=== PATIENT | male | born 1985 | race Caucasian/White ===

== ENCOUNTER 2019-06-15 10:43 | Emergency (ER) | payer MEDICARE, SELFPAY ==
[2019-06-15 10:56] VITALS: BP 167/99; PULSE 116; RESP 18; TEMP 36.8; O2SAT 98; BMI 29.0
--- NOTE | 2019-06-15 11:06 | ED_ITS ---
HPI - Extremity Problem General: Chief complaint: Extremity Problem,Nontraumatic Stated complaint: left hand finger pain Time Seen by Provider: 06/15/19 11:05 Source: patient Mode of arrival: ambulatory Limitations: no limitations History of Present Illness: HPI Narrative: pain/throbbing and swelling to L index finger x 2 days; no known injury/trauma/fb Complaint: extremity pain Onset (ago): day(s) (yesterday ) Pain Consistency: constant Location: left (index finger ) Quality: other (throbbing) Relieving factors: elevation Associated symptoms: Reports no associated symptoms; Deny fever(s) Review of Systems Const: Denies: fever or chills Musc: Reports: other (swelling to distal L index finger ) Neuro: Denies: numbness in extremities, weakness in extremities or changes in sensation PFSH ED PFSH: Statuses (acute, chronic, etc) shown below reflect problem list status as previously entered and may not be historically accurate Social History Smoking and tobacco status: current every day smoker Physical Exam Const: COMMON NORMALS: no apparent distress, oriented x3 and healthy appearing Neuro: COMMON NORMALS: oriented x3 Skin: NARRATIVE SKIN EXAM: probably developing felon to L index finger; no erythema/warmth Procedures Abscess I/D Site: hand (L index finger ) Side (if applicable): left Local Anesthetic: lidocaine 1% (digital block ) Amount of anesthesia used (mL): 2.0 Technique: incised with #11 blade Irrigation: No Packing used?: plain Course Vital Signs: Vital signs: Vital Signs Temperature 98.2 F 06/15/19 10:56 Pulse Rate 74 06/15/19 13:17 Respiratory Rate 16 06/15/19 13:17 Blood Pressure 157/92 06/15/19 13:17 Pulse Oximetry 98 06/15/19 13:17 MDM - Extremity (Nontraumatic) MDM Narrative: Medical decision making narrative: will have pt do warm water soaks and leave packing in x 3 days and he can remove; will have him return for worsening symptoms despite abx Imaging Data^: L finger: Radiologist's impression: [address] [address] XRay Report Signed Patient: Ramón Otero MR#: [id number] : 1985 Acct:[id number] Age/Sex: 34 / M ADM Date: 06/15/19 Loc: ER Attending Dr: Ordering Physician: Sara Mak Date of Service: 06/15/19 Procedure(s): XR finger LT min 2V 73305 Accession Number(s): [id number] cc: Sara Mak PROCEDURE INFORMATION: Exam: XR Left Finger(s) Exam date and time: 06/15/2019 11:12 AM Age: 34 years old Clinical indication: Condition or disease; Other: Index; Infection/poss fb; Additional info: Index; Infection/poss fb swelling distal 2nd finger TECHNIQUE: Imaging protocol: XR Left fingers. Views: Minimum 2 views. COMPARISON: No relevant prior studies available. FINDINGS: Bones/joints: Normal finger. No fracture or foreign body. Soft tissues: Normal. XR/XR finger LT min 2V [id number] IMPRESSION: No fracture or foreign body. Dictated By: Tommy Lynn MD 06/15/19 1224 Signed By: Tommy Lynn MD 06/15/19 1225 Discharge Plan Discharge Patient Disposition: Home, Self-Care Clinical Impression: Felon of finger of left hand Condition: Stable Prescriptions: New sulfamethoxazole-trimethoprim 800-160 mg tablet 1 tab PO DAILY 7 Days RF: 0 Bactrim DS 800-160 mg tablet 1 tab PO BID 7 Days Qty: 14 RF: 0 Discharge Orders: Discharge Order (Routine); Ordered 06/15/19 Ordered By: Sara Mak Referrals: Selin Dahl, CASH VAN SALESPERSON [Family Provider] - Discharge Diet: Usual diet Discharge Activity: Resume usual activity Activity Restrictions/Additional Instructions: Leave packing in x 3 days. Remove on your own. Soak finger in warm soapy water 3x daily x 15 mins. Stand Alone Forms: Work/Release Restrictions Discharge Date/Time: 06/15/19 13:27 Coding Level of Care Code ED Wood Sash And Frame Carpenter for Maya Aguirre
--- NOTE | 2019-06-15 11:11 | XRR_ITS ---
PROCEDURE INFORMATION: Exam: XR Left Finger(s) Exam date and time: 06/15/2019 11:12 AM Age: 34 years old Clinical indication: Condition or disease; Other: Index; Infection/poss fb; Additional info: Index; Infection/poss fb swelling distal 2nd finger TECHNIQUE: Imaging protocol: XR Left fingers. Views: Minimum 2 views. COMPARISON: No relevant prior studies available. FINDINGS: Bones/joints: Normal finger. No fracture or foreign body. Soft tissues: Normal. XR/XR finger LT min 2V [id number] IMPRESSION: No fracture or foreign body.
--- NOTE | 2019-06-15 11:13 | PC.NURSE ---
left index finger appears to have wound on tip
[2019-06-15] MEDS: lidocaine 2% INJ 20 mL XX (12:15)
[2019-06-15 13:17] VITALS: BP 157/92; PULSE 74; RESP 16; O2SAT 98
== END 2019-06-15 13:27 | disposition home or self-care (01) ==
PROVIDERS: Emergency Provider Physician Assistant; Family Provider Nurse Practitioner Family
DX: L03.012 Cellulitis of left finger (principal); L02.512 Cutaneous abscess of left hand; F17.210 Nicotine dependence, cigarettes, uncomplicated
CPT/HCPCS: 26010; 73140; 99281; 99283; A6446; J2001

== ENCOUNTER 2019-07-11 15:06 | Emergency (ER) | payer MEDICARE, SELFPAY ==
[2019-07-11 15:08] VITALS: BP 167/110; PULSE 103; RESP 17; TEMP 36.7; O2SAT 98; BMI 29.0
[2019-07-11 15:09] VITALS: BP 167/110; PULSE 99; RESP 18; TEMP 36.7; O2SAT 98
[2019-07-11 15:21] VITALS: PULSE 99
[2019-07-11] MEDS: TRAMadol 50 mg Tablet PO (15:30)
[2019-07-11 15:47] VITALS: BP 167/110; PULSE 105; RESP 18; TEMP 36.7; O2SAT 99
--- NOTE | 2019-07-11 15:52 | ED_ITS ---
HPI - Extremity Problem General: Chief complaint: Extremity Injury, Upper Stated complaint: swollen thumb Time Seen by Provider: 07/11/19 15:14 Source: patient Mode of arrival: ambulatory Limitations: no limitations History of Present Illness: HPI Narrative: Patient is a 34-year-old male who presents to ED today with complaints of right thumb pain over the past few days. 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 He was here earlier last month for similar symptoms on an index finger on his left hand-this was seen by myself and cleared up nicely. MD Complaint: extremity pain Onset (ago): day(s) Pain Consistency: constant Location: right Radiation: none Relieving factors: nothing Exacerbating factors: nothing Review of Systems Musc: Reports: other (R thumb pain) PFSH ED PFSH: Statuses (acute, chronic, etc) shown below reflect problem list status as previously entered and may not be historically accurate Social History Smoking and tobacco status: current every day smoker Physical Exam Const: COMMON NORMALS: no apparent distress, oriented x3, no limitations, alert and well nourished Extremity: OTHER: Patient has redness to his right distal thumb that is TTP. No obvious felon/abscess formation at this time. No subungual hematoma. No fb visualized. There is no uniform swelling to digit; maintains full ROM Neuro: COMMON NORMALS: oriented x3 SENSORIUM/ORIENTATION: Yes alert Course Vital Signs: Vital signs: Vital Signs Temperature 98.1 F 07/11/19 15:47 Pulse Rate 105 H 07/11/19 15:47 Respiratory Rate 18 07/11/19 15:47 Blood Pressure 167/110 07/11/19 15:47 Pulse Oximetry 99 07/11/19 15:47 Discharge Plan Discharge Patient Disposition: Home, Self-Care Clinical Impression: Finger infection Condition: Stable Prescriptions: New Bactrim DS 800-160 mg tablet 1 tab PO BID 7 Days Qty: 14 RF: 0 Discharge Orders: Discharge Order (Routine); Ordered 07/11/19 Ordered By: Sara Mak Referrals: Selin Dahl, SHOT POLISHER AND INSPECTOR [Family Provider] - Activity Restrictions/Additional Instructions: Warm water soaks x 15-20 mins at least 5-6x daily. Begin antibiotics immediately. Return to ED for no improvement in 48 hours despite antibiotics. As discussed this may have to be drained later. Discharge Date/Time: 07/11/19 15:35 Coding Level of Care Code ED Pharmacy Laboratory Technician for Chg Fwd Exam Problem Focused
== END 2019-07-11 15:35 | disposition home or self-care (01) ==
PROVIDERS: Emergency Provider Physician Assistant; Family Provider Nurse Practitioner Family; Referring Provider Physician Assistant
DX: L08.9 Local infection of the skin and subcutaneous tissue, unspecified (principal); F17.210 Nicotine dependence, cigarettes, uncomplicated
CPT/HCPCS: 99281; 99282

== ENCOUNTER 2019-07-12 22:30 | Emergency (ER) | payer MEDICARE, SELFPAY ==
[2019-07-12 22:45] VITALS: BP 146/119; PULSE 110; RESP 16; TEMP 36.4; O2SAT 98; BMI 29.0
--- NOTE | 2019-07-12 22:50 | XR_ITS ---
WS: [id number] RIGHT HAND: 3 VIEW(S) TECHNIQUE: PA, oblique and lateral. HISTORY: cellulitis COMPARISON: None available. No acute fracture or dislocation. Mild soft tissue edema surrounding the first finger. There is a thin linear soft tissue foreign body lateral to the distal second phalanx. Removal fracture at the ulnar styloid with nonfusion. XR/XR hand RT min 3V* [id number] IMPRESSION: 1. Mild cellulitis around the first finger. 2. No acute fracture. 3. Remote unfused ulnar styloid avulsion fracture.
--- NOTE | 2019-07-12 22:53 | ED_ITS ---
HPI - Extremity Problem General: Chief complaint: Extremity Injury, Upper Stated complaint: infection in thumb Time Seen by Provider: 07/12/19 22:43 History of Present Illness: HPI Narrative: Patient comes in today with complaints of pain and swelling to the right thumb. 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 Patient has had a history of a previous finger infection about 1 month ago. Patient was seen yesterday and started on Bactrim. Patient does report that the swelling has improved but now he has streaking going up his arm into under his axilla. Patient appears well. Patient appears in mild to moderate pain. Review of Systems General: Reports: 10 or more systems reviewed and unremarkable except in HPI and below Musc: Reports: extremity swelling (right thumb) PFSH ED PFSH: Statuses (acute, chronic, etc) shown below reflect problem list status as previously entered and may not be historically accurate Social History Smoking and tobacco status: current every day smoker Physical Exam Const: COMMON NORMALS: no apparent distress and oriented x3 GENERAL APPEARANCE: cooperative HENMT: COMMON NORMALS: normocephalic, external ears normal, EAC's normal, TM's normal bilaterally and external nose normal HEAD & SCALP: normal to inspection and normocephalic FACE & SINUS: normal facial exam NOSE: external nose normal GENERAL EAR: hearing not grossly impaired EXTERNAL EAR: Yes external ears normal EXTERNAL AUDITORY CANAL: EAC's normal TYMPANIC MEMBRANE: TM's normal bilaterally MOUTH: oral and palatal mucosa normal THROAT: posterior oropharynx normal Eye: COMMON NORMALS: PERRL and EOMs intact bilaterally PUPIL: Yes PERRL Neck/C-Spine: COMMON NORMALS: full ROM and no lymphadenopathy Lymph: LYMPHATIC: no lymphedema noted Chest: COMMONS NORMALS: inspection of chest normal and palpation of chest normal Resp: COMMON NORMALS: normal respiratory effort and clear to auscultation bilaterally AUSCULTATION: clear to auscultation bilaterally Cardio: COMMON NORMALS: regular rate and regular rhythm RATE: regular rate RHYTHM: regular rhythm GI: COMMON NORMALS: normal to inspection, nondistended, normoactive bowel sounds and non-tender : COMMON NORMALS: Yes no CVA tenderness BLADDER/KIDNEY EXAM: Yes no CVA tenderness Back/Pelvis: COMMON NORMALS: no CVA tenderness and thoracic and lumbar spine normal to inspection Extremity: COMMON NORMALS: normal to inspection GENERAL: No edema Neuro: COMMON NORMALS: oriented x3, moves all extremities and no focal motor deficits Psych: COMMON NORMALS: mental status grossly normal and cooperative Skin: NARRATIVE SKIN EXAM: Right distal thumb has redness with swelling to the metacarpal joint of the thumb, purulent drainage is noted coming from underneath the nailbed of the thumb. Streaking is noted going up the inner aspect of the right arm to the axilla. Course Vital Signs: Vital signs: Vital Signs Temperature 97.5 F L 07/12/19 22:45 Pulse Rate 110 H 07/12/19 22:45 Respiratory Rate 16 07/12/19 22:45 Blood Pressure 146/119 07/12/19 22:45 Pulse Oximetry 98 07/12/19 22:45 MDM - Extremity (Nontraumatic) MDM Narrative: Medical decision making narrative: Patient comes in today for complaints of headache, increased pain to the thumb on the right hand, and some streaking up his arm from the infection. Patient appears well. Examination notes some swelling and purulent drainage from the right thumb. I do note red streaking/lymphangitis up to the mid upper arm. Respirations are even. Vital signs are stable. Differential diagnosis includes paronychia, cellulitis, felon, tenosynovitis, lymphangitis, IV drug use. Laboratory values were significant for white count of 13.6, lactate was normal. Remainder of labs were normal. Blood cultures were collected patient was infused 1 g of vancomycin and 600 mg of clindamycin. 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 Patient was instructed to continue antibiotics as directed follow-up in 2 to 3 days with primary care but to return to the ER for worsening symptoms high fever or nausea and vomiting. Patient reports understanding agreed to plan. Lab Data: Labs: Lab Results 07/12/19 07/12/19 07/12/19 Range/Units 23:01 23:01 23:01 WBC 13.6 H (4.0-10.0) 10^3/ uL RBC 5.02 (4.1-5.3) 10^6/u L Hgb 14.6 (11.7-16.6) g/dL Hct 43.8 (42.0-52.0) % MCV 87.3 (80-94) fL MCH 29.1 (28.0-34.0) pg MCHC 33.3 (30.0-36.0) g/dL RDW 12.5 (12.1-15.1) % Plt Count 335 (130-400) 10^3/c mm MPV 8.7 (7.4-10.4) fL Neut % (Auto) 69.0 % Lymph % (Auto) 18.0 % Antelope % (Auto) 10.8 % Eos % (Auto) 1.2 % Baso % (Auto) 0.3 % Neut # (Auto) 9.4 H (1.8-7.7) 10^3/u L Lymph # (Auto) 2.4 (0.8-4.8) 10^3/u L Antelope # (Auto) 1.5 H (0.2-0.9) 10^3/u L Eos # (Auto) 0.2 (0.0-0.8) 10^3/u L Baso # (Auto) 0.0 (0.0-0.1) 10^3/u L Nucleated RBC % (a uto) 0 % Nucleated RBCs # 0.0 /100WBC Sodium 139 (136-145) mmol/L Potassium 3.8 (3.5-5.1) mmol/L Chloride 100 (98-107) mmol/L Carbon Dioxide 27 (22-29) mmol/L Anion Gap 15.8 (5-19) BUN 11 (6-20) mg/dL Creatinine 0.9 (0.7-1.2) mg/dL GFR Calculation 97.8 (90-130) mL/min Glucose 107 (74-109) mg/dL Lactic Acid 1.4 (0.5-2.2) mmol/L Calcium 9.8 (8.5-10.5) mg/dL Total Bilirubin 0.2 (0.15-1.2) mg/dL AST 16 (0-40) U/L ALT 18 (0-41) U/L Alkaline Phosphata se 91 (40-130) IU/L Total Protein 7.5 (6.6-8.7) g/dL Albumin 4.3 (3.5-5.2) g/dL Globulin 3.2 (1.3-4.6) g/dL Discharge Plan Discharge Patient Disposition: Home, Self-Care Clinical Impression: Finger infection, Acute lymphangitis Condition: Stable Prescriptions: New ciprofloxacin HCl 500 mg tablet 500 mg PO BID Qty: 14 RF: 0 ibuprofen 800 mg tablet 800 mg PO Q8H PRN (Reason: pain) Qty: 30 RF: 0 hydrocodone-acetaminophen 5-325 mg tablet 1 tab PO Q6H PRN (Reason: pain) Qty: 7 RF: 0 No Action Bactrim DS 800-160 mg tablet 1 tab PO BID 7 Days Qty: 14 RF: 0 Discharge Orders: Discharge Order (Routine); Ordered 07/12/19 Ordered By: Troy Pinto Referrals: Selin Dahl, WAITER/WAITRESS FORMAL [Family Provider] - Discharge Diet: Usual diet Discharge Activity: Increase activity as tolerated Patient Instructions: Paronychia (ED) Activity Restrictions/Additional Instructions: Keep wound clean and dry Drink plenty of water with medications Continue Bactrim DS, add Ciprofloxin Use acetaminophen and ibuprofen for pain Return to ER for high fever Follow-up with primary care 2-3 days for recheck Stand Alone Forms: Work/School Release Coding Level of Care Code ED Laminated Plastics Assembler And Gluer for Maya Aguirre Exam Problem Focused
[2019-07-12 23:16] LABS: Basophils % 0.3 %; Eosinophils # 0.2 10^3/uL (0.0-0.8); Eosinophils % 1.2 %; Hematocrit 43.8 % (42.0-52.0); Hemoglobin 14.6 g/dL (11.7-16.6); Lymphocytes # 2.4 10^3/uL (0.8-4.8); Mean Corpuscular HGB Conc 33.3 g/dL (30.0-36.0); Mean Corpuscular Hemoglobin 29.1 pg (28.0-34.0); Mean Corpuscular Volume 87.3 fL (80-94); Mean Platelet Volume 8.7 fL (7.4-10.4); Monocytes # 1.5 10^3/uL (0.2-0.9); Monocytes % 10.8 %; Neutrophils # 9.4 10^3/uL (1.8-7.7); Nucleated Red Blood Cells % 0 %; Platelet Count 335 10^3/cmm (130-400); Red Blood Count 5.02 10^6/uL (4.1-5.3); Red Cell Distribution Width 12.5 % (12.1-15.1); White Blood Count 13.6 10^3/uL (4.0-10.0)
[2019-07-12] MEDS: vancomycin 1,000 MG in sodium chloride 0.9% 250 ML 250 MG IV (23:17)
[2019-07-12] MEDS: sodium chloride 0.9% 1,000 ML 999 ML IV (23:21)
[2019-07-12] MEDS: ketorolac 30 mg/mL INJ 15 MG IVP (23:21)
[2019-07-12 23:34] LABS: Lactic Sepsis W/Reflex 1.4 mmol/L (0.5-2.2)
[2019-07-12 23:35] LABS: Alanine Aminotransferase 18 U/L (0-41); Albumin Level 4.3 g/dL (3.5-5.2); Alkaline Phosphatase 91 IU/L (40-130); Anion Gap 15.8 (5-19); Aspartate Amino Transferase 16 U/L (0-40); Blood Urea Nitrogen 11 mg/dL (6-20); Calcium 9.8 mg/dL (8.5-10.5); Carbon Dioxide 27 mmol/L (22-29); Chloride 100 mmol/L (98-107); Globulin 3.2 g/dL (1.3-4.6); Glomerular Filtration Rate 97.8 mL/min (90-130); Glucose 107 mg/dL (74-109); Potassium 3.8 mmol/L (3.5-5.1); Sodium 139 mmol/L (136-145); Total Bilirubin 0.2 mg/dL (0.15-1.2); Total Protein 7.5 g/dL (6.6-8.7)
[2019-07-13] MEDS: clindamycin 600 MG/50 ML PREMIX 100 MG IV (00:07)
[2019-07-13 00:55] VITALS: BP 134/71; PULSE 82; RESP 16; TEMP 36.8; O2SAT 99
== END 2019-07-13 00:55 | disposition home or self-care (01) ==
PROVIDERS: Emergency Provider Nurse Practitioner Family; Family Provider Nurse Practitioner Family
DX: L03.021 Acute lymphangitis of right finger (principal); F17.210 Nicotine dependence, cigarettes, uncomplicated
CPT/HCPCS: 36415; 73130; 80053; 83605; 85025; 87040; 87077; 96360; 96365; 96368; 96374; 99282; 99283; J1885; J3370; J3490; J7030; J7050

== ENCOUNTER → 2019-10-19 08:41 | Outpatient (BNVA) | payer MEDICARE, SELFPAY | PROVIDERS: Family Provider Nurse Practitioner Family; Visit Provider Psychiatry & Neurology Psychiatry | DX: Z01.89 Encounter for other specified special examinations (principal) | CPT/HCPCS: 87070; 87205 ==

== ENCOUNTER 2019-10-19 09:19 | Emergency (ER) | payer MEDICARE, SELFPAY ==
[2019-10-19 09:26] VITALS: BP 189/126; PULSE 103; RESP 16; TEMP 36.6; O2SAT 98; BMI 29.1
--- NOTE | 2019-10-19 09:27 | ED_ITS ---
HPI - Extremity Problem General: Chief complaint: General Medical Stated complaint: ELEVATED BP, INFECTION IN LEFT HAND Time Seen by Provider: 10/19/19 09:22 Source: patient Mode of arrival: ambulatory Limitations: no limitations History of Present Illness: HPI Narrative: Patient is a 34-year-old male who presents to ED today with a complaint of an infection to his left index finger as well as hypertension. Patient apparently was at [facility] for an appointment and when they were taking vitals noticed elevated blood pressure so they recommended he come to the emergency department. Patient has no signs or symptoms related to his hypertension. Patient tells me he has been diagnosed with hypertension previously and used to take medications for this however was fired from his PCP for missing appointments and therefore has not been on medications for this in several months. Patient has had several hand infections over the past 4 months. 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 Last visit for this was back in July and infection at that time was on his right thumb. Patient states after taking antibiotics his infection seemed to clear. MD Complaint: extremity pain, extremity swelling and other (hypertension) Pain Consistency: constant Location: left (index finger) Radiation: none Relieving factors: nothing Exacerbating factors: nothing Associated symptoms: Deny chest pain, fever(s) or rash Review of Systems Const: Denies: fever, chills, body aches, fatigue or malaise Eyes: Denies: change in vision, blurry vision, blind spots, photophobia, floaters or seeing flashes Card: Denies: chest pain, palpitations, irregular heart rhythm, lightheadedness, syncope or shortness of breath on exertion Resp: Denies: shortness of breath, productive cough or pain on inspiration GI: Denies: abdominal pain, nausea, vomiting, heartburn/indigestion or diarrhea : Denies: difficulty urinating or painful urination Musc: Reports: extremity pain (L index finger), extremity swelling (L index finger) and joint pain; Denies: neck pain or back pain Skin/Breast: Denies: rash Neuro: Denies: headache, numbness in extremities, weakness in extremities, changes in sensation, difficulty walking, frequent falls, dizziness or slurred speech PFS ED PFSH: Social History Smoking and tobacco status: current every day smoker Current gender identity: Male Physical Exam Const: COMMON NORMALS: no apparent distress, average body habitus, oriented x3, no limitations, healthy appearing, alert and well nourished ORIENTATION/CONSCIOUSNESS: Yes oriented to person, Yes oriented to place and Yes oriented to time HENMT: COMMON NORMALS: normocephalic and head/scalp atraumatic HEAD & SCALP: normocephalic and atraumatic Resp: COMMON NORMALS: normal respiratory effort and clear to auscultation bilaterally AUSCULTATION: clear to auscultation bilaterally Cardio: COMMON NORMALS: regular rate and regular rhythm RATE: regular rate RHYTHM: regular rhythm Extremity: OTHER: pt has mild erythema/swelling localized to L index finger mainly around PIP joint; on palmar aspect there is a tiny 1-2mm purulent appearing pocket of fluid-this was punctured with a needle and small amount of clear mixed with purulent drainage expressed-cultured; pt is still able to move/flex digit; he does not have uniform swelling; no evidence for infectious tenosynovitis at this time Neuro: JOHNY COMA SCALE: document GCS findings [place] coma scale eye opening: Spontaneous [place] coma scale verbal response: Orientated [place] coma scale motor response: Obey commands [place] coma scale total score: 15 COMMON NORMALS: oriented x3, CN's II-XII intact bilaterally, moves all extremities, no focal motor deficits, no sensory deficits noted and gait normal SENSORIUM/ORIENTATION: Yes alert, Yes oriented to person, Yes oriented to place and Yes oriented to time Skin: OTHER: see extremity assessment Course Vital Signs: Vital signs: Vital Signs Temperature 97.9 F 10/19/19 09:26 Pulse Rate 93 10/19/19 09:58 Respiratory Rate 16 10/19/19 09:58 Blood Pressure 168/127 10/19/19 09:58 Pulse Oximetry 98 10/19/19 09:58 MDM - Extremity (Nontraumatic) MDM Narrative: Medical decision making narrative: Patient has no signs or symptoms related to his hypertension. This is a chronic issue for patient. He has not been on medications for several months after getting fired from his PCP. Case management has spoken to patient and was able to set him up with a new PCP appointment in approximately 2 weeks. He was given information regarding this and urged not to miss this appointment. He will be placed back on his metoprolol which is the medication he used to take previously for hypertension. I will also place him on clindamycin for the left finger infection. Discharge Plan Discharge Patient Disposition: Home, Self-Care Clinical Impression: Hypertension, Non compliance w medication regimen, Cellulitis of finger, left Condition: Stable Prescriptions: New clindamycin HCl 300 mg capsule 300 mg PO Q6H 7 Days Qty: 28 RF: 0 metoprolol tartrate 50 mg tablet 50 mg PO DAILY Qty: 30 RF: 0 No Action ibuprofen 800 mg tablet 800 mg PO Q8H PRN (Reason: pain) Qty: 30 RF: 0 metoprolol succinate 50 mg Tablet Extended Release 24 Hr 50 mg PO DAILY RF: 0 lisinopril 20 mg Tablet 20 mg PO DAILY RF: 0 Discharge Orders: Discharge Order (Routine); Ordered 10/19/19 Ordered By: Sara Mak Referrals: Rosa Isela Reynolds DO [Physician] - 11/05/19 9:00 am Discharge Diet: Usual diet Discharge Activity: Resume usual activity Patient Instructions: Hypertension, Hypertension (ED) Activity Restrictions/Additional Instructions: It is imperative that you follow-up with your primary care provider for further evaluation of your hypertension. I have started you back on metoprolol which is the medication you used to take for your high blood pressure. Begin taking antibiotics immediately for the infection in your finger. You may return to the emergency department 2 to 3 days if infection continues to worsen. Interventions: ED Discharge Assessment Last Done: 10/19/19 09:58 ED Charges Last Done: 10/19/19 09:58 Discharge Date/Time: 10/19/19 09:59 Coding Level of Care Code ED Clinical Appeals Specialist for Maya Aguirre
--- NOTE | 2019-10-19 09:50 | DCPLANNER ---
assistant manager was asked to help patient get established with a primary care physician. assistant manager spoke with patient about getting established with a primary care physician. Patient stated that he would like to have a primary care physician. assistant manager called the office of Dr. Reynolds, spoke with Sana, patient was established and follow up appointment was scheduled for Tuesday, November 05, 2019 at 9:[address] Reynolds. assistant manager informed ED physician, and patient of the scheduled appointment. assistant manager spoke with patient and stressed the importance of keeping this appointment, informed patient that he could cancel or reschedule the appointment, but not no show the appointment. Patient stated that he understood about attending the appointment.
[2019-10-19 09:52] VITALS: RESP 17
[2019-10-19 09:58] VITALS: BP 168/127; PULSE 93; RESP 16; O2SAT 98
--- NOTE | 2019-12-08 15:41 | DCPLANNER ---
Patient attended appointment scheduled with Dr. Reynolds.
== END 2019-10-19 09:59 | disposition home or self-care (01) ==
PROVIDERS: Emergency Provider Physician Assistant; Family Provider Nurse Practitioner Family
DX: I10 Essential (primary) hypertension (principal); L03.012 Cellulitis of left finger; Z91.14 Patient's other noncompliance with medication regimen; F17.210 Nicotine dependence, cigarettes, uncomplicated
CPT/HCPCS: 12345; 87186; 99282

== ENCOUNTER → 2019-10-23 08:46 | Outpatient (BNVA) | payer MEDICARE, SELFPAY | PROVIDERS: Family Provider Nurse Practitioner Family; Visit Provider Psychiatry & Neurology Psychiatry | DX: F41.9 Anxiety disorder, unspecified (principal); F07.81 Postconcussional syndrome; F34.9 Persistent mood [affective] disorder, unspecified; F90.0 Attention-deficit hyperactivity disorder, predominantly inattentive type; F51.13 Hypersomnia due to other mental disorder; F06.30 Mood disorder due to known physiological condition, unspecified; M25.561 Pain in right knee; M25.562 Pain in left knee; G89.29 Other chronic pain; M25.511 Pain in right shoulder | CPT/HCPCS: 80053; 80061; 82306; 82525; 82607; 82746; 83735; 84439; 84443; 84480; 84481; 84630; 85025; 99205 ==

== ENCOUNTER 2019-10-23 10:35 | Outpatient (CLI) | payer MEDICARE, SELFPAY ==
[2019-10-23 13:11] LABS: Basophils # 0.1 10^3/uL (0.0-0.1); Basophils % 0.6 %; Eosinophils # 0.2 10^3/uL (0.0-0.8); Eosinophils % 1.6 %; Hematocrit 50.1 % (42.0-52.0); Lymphocytes # 2.1 10^3/uL (0.8-4.8); Lymphocytes % 21.9 %; Mean Corpuscular HGB Conc 31.9 g/dL (30.0-36.0); Mean Corpuscular Hemoglobin 27.8 pg (28.0-34.0); Monocytes % 10.3 %; Neutrophils # 6.1 10^3/uL (1.8-7.7); Nucleated Red Blood Cells % 0 %; Platelet Count 412 10^3/cmm (130-400); Red Blood Count 5.76 10^6/uL (4.1-5.3); Red Cell Distribution Width 13.4 % (12.1-15.1); White Blood Count 9.5 10^3/uL (4.0-10.0)
[2019-10-23 13:44] LABS: 25 Hydroxy Vitamin D 16 ng/mL (30-100); Alanine Aminotransferase 46 U/L (0-41); Albumin Level 4.3 g/dL (3.5-5.2); Alkaline Phosphatase 98 IU/L (40-130); Anion Gap 15.1 (5-19); Aspartate Amino Transferase 33 U/L (0-40); Blood Urea Nitrogen 8 mg/dL (6-20); Calcium 10.5 mg/dL (8.5-10.5); Carbon Dioxide 28 mmol/L (22-29); Chloride 101 mmol/L (98-107); Chol HDL Ratio 4.13 mg/dL (1.0-5.00); Cholesterol 161 mg/dL (0-200); Globulin 3.4 g/dL (1.3-4.6); Glucose 103 mg/dL (65-115); HDL Cholesterol 39 mg/dL (60-100); LDL Cholesterol Calculated 102 mg/dL (50-129); LDL HDL Ratio 2.62 RATIO (0.00-3.22); Magnesium 2.7 mg/dL (1.7-2.3); Osmolality Calculated 286 mOsm/kg (285-295); Potassium 4.1 mmol/L (3.5-5.1); Sodium 140 mmol/L (136-145); Thyroid Stimulating Hormone 0.87 uIU/mL (0.27-4.20); Total Bilirubin 0.3 mg/dL (0.15-1.2); Total Protein 7.7 g/dL (6.6-8.7); Triglycerides 101 mg/dL (0-150); Vitamin B12 293 pg/mL (232-1245)
[2019-10-23 14:42] LABS: Free T4 Free Thyroxine 1.05 ng/dL (0.82-1.77)
[2019-10-23 14:52] LABS: Folate Level > 20.0 ng/mL (4.5-32.2)
[2019-10-24 11:12] LABS: T3 Total 134 ng/dL (76-181)
[2019-10-28 20:01] LABS: Copper Level 132 mcg/dL (70-175); Zinc Level, Serum or Plasma 85 mcg/dL (60-130)
== END 2019-10-23 10:36 | disposition home or self-care (01) ==
LOC: LAB 10:39
PROVIDERS: Visit Provider Psychiatry & Neurology Psychiatry
DX: F41.9 Anxiety disorder, unspecified (principal)
CPT/HCPCS: 80053; 80061; 82306; 82525; 82607; 82746; 83735; 84439; 84443; 84480; 84481; 84630; 85025

== ENCOUNTER → 2019-11-10 08:37 | Outpatient (BNVA) | payer MEDICARE, SELFPAY | PROVIDERS: Visit Provider Nurse Practitioner Psychiatric/Mental Health | DX: F34.9 Persistent mood [affective] disorder, unspecified (principal); F41.9 Anxiety disorder, unspecified | CPT/HCPCS: 99213 ==

== ENCOUNTER 2020-08-07 21:19 | Emergency (ER) | payer MEDICARE, SELFPAY ==
[2020-08-07 21:24] VITALS: BP 198/110; PULSE 103; RESP 14; TEMP 36.3; O2SAT 99; BMI 28.5
--- NOTE | 2020-08-07 21:30 | PC.NURSE ---
When asked about pain scale, pt states, I don't know how to fucking explain it, but it fucking hurts. It hurts so fucking bad I just want to quit fucking breathing
--- NOTE | 2020-08-07 21:32 | W.ED.FALL ---
HPI - Fall General: Chief Complaint: Fall Stated Complaint: TRIPPED, FELL, DIFF BREATHING SINCE Time Seen by Provider: 08/07/20 21:22 Source: patient Mode of arrival: ambulatory Limitations: no limitations History of Present Illness: HPI Narrative: Patient is a 35-year-old male who presents to ED today with a complaint of right upper anterior chest pain that began following a fall. Patient tells me he was running when he accidentally tripped and fell and landed onto his right side. He states he has had pain since. He reports pain with deep inhalation. Denies any other injury sustained during the fall. He denies striking his head, LOC, neck or back pain. MD complaint: fall Onset (ago): hour(s) (approximately 6 hours ago) Fall from: standing Fall witnessed: yes, by family Place fall occurred: home Loss of consciousness: None Prolonged down time: no Symptoms prior to fall: none Context: tripped/slipped Location of injury: chest Associated symptoms-after fall: Reports no associated symptoms and chest pain; Denies abdominal pain, headache(s), lightheadedness or neck pain Review of Systems Const: Denies: fever(s), chills, body aches, fatigue or malaise Eyes: Denies: change in vision or blurry vision ENMT: Denies: throat pain or odynophagia Card: Reports: chest pain; Denies: palpitations, irregular heart rhythm, edema, swelling of feet/ankles, lightheadedness, syncope or pre-syncope Resp: Reports: pain on inspiration; Denies: dyspnea, productive cough, non-productive cough, wheezing, stridor, change in phlegm color, hemoptysis or chest congestion GI: Denies: abdominal pain, nausea, vomiting or diarrhea Musc: Denies: neck pain Neuro: Denies: headache(s), numbness in extremities, weakness in extremities or sensory changes PFS ED PFSH: Medical History (Updated 08/07/20 @ 22:08 by TABITHA Davenport) Essential hypertension Renal calculi Surgical History (Updated 11/13/19 @ 11:22 by Rosa Isela Reynolds DO) No pertinent past surgical history Social History Smoking and tobacco status: current every day smoker cigarettes Packs smoked per day: 0.5 Years cigarettes smoked: 12 Quit status (tobacco): not considering quitting Alcohol intake: never Current gender identity: Male Physical Exam Const: COMMON NORMALS: no acute distress, patient oriented x3, no limitations and alert GENERAL APPEARANCE: cooperative ORIENTATION/CONSCIOUSNESS: Yes awake, Yes oriented to person, Yes oriented to place and Yes oriented to time HENMT: COMMON NORMALS: normocephalic and atraumatic HEAD & SCALP: normocephalic and atraumatic Neck/C-Spine: COMMON NORMALS: full ROM CERVICAL SPINE: Yes cervical ROM normal, No pain with cervical ROM, No Cervical spine tenderness and No Paracervical muscle tenderness Chest: COMMONS NORMALS: normal inspection of the chest Chest images (male): 1. TTP Resp: COMMON NORMALS: normal respiratory effort and clear to auscultation bilaterally AUSCULTATION: clear to auscultation bilaterally Cardio: COMMON NORMALS: regular rate and regular rhythm RATE: regular rate RHYTHM: regular rhythm GI: COMMON NORMALS: Normal to inspection, nondistended, normoactive bowel sounds present, Soft to palpation, non-tender, No hepatosplenomegaly present and no masses PALPATION: Yes Soft to palpation and Yes No hepatosplenomegaly present : COMMON NORMALS: Yes no CVA tenderness BLADDER/KIDNEY EXAM: Yes no CVA tenderness Back/Pelvis: COMMON NORMALS: no CVA tenderness, thoracic and lumbar spine normal to inspection, no thoracic nor lumbar tenderness and thoraco-lumbar ROM normal Extremity: COMMON NORMALS: normal to inspection and full ROM GENERAL: Yes normal exam except as noted Neuro: COMMON NORMALS: patient oriented x3 SENSORIUM/ORIENTATION: Yes alert, Yes oriented to person, Yes oriented to place and Yes oriented to time Skin: COMMON NORMALS: no rashes or lesions noted GENERAL SKIN EXAM: no rashes or lesions noted Course Vital Signs: Vital signs: Vital Signs Temperature 97.3 F L 08/07/20 21:24 Pulse Rate 94 08/07/20 21:39 Respiratory Rate 16 08/07/20 21:39 Blood Pressure 186/126 08/07/20 21:39 Pulse Oximetry 99 08/07/20 21:39 MDM - Fall Imaging Data^: XR R ribs/chest: My impression: NAD-reviewed with Dr. Warren Discharge Plan Discharge Patient Disposition: Home Clinical Impression: Acute chest wall pain Fall Qualifiers: Encounter type: initial encounter Qualified Code(s): W19.XXXA - Unspecified fall, initial encounter Condition: Stable Prescriptions: No Action clindamycin HCl 300 mg capsule 300 mg PO Q6H RF: 0 lisinopril 20 mg tablet 20 mg PO DAILY Qty: 30 RF: 0 metoprolol succinate 50 mg tablet extended release 24 hr 50 mg PO DAILY Qty: 30 RF: 0 duloxetine [Cymbalta] 30 mg capsule,delayed release(DR/EC) 30 mg PO DAILY Qty: 30 RF: 0 ibuprofen 800 mg tablet 800 mg PO Q8H PRN (Reason: pain) Qty: 30 RF: 0 Discharge Orders: Discharge ED (Routine); Ordered 08/07/20 Ordered By: Sara Mak Referrals: Rosa Isela Reynolds DO [Primary Care Provider] - Patient Instructions: Chest Pain - Chest Wall Activity Restrictions/Additional Instructions: You may return to the emergency department for severe chest pain, difficulty breathing, shortness of breath, fevers, trouble swallowing, or any other concerns you may have. You need to follow-up with your primary care provider in regards to your chronic blood pressure elevations. Coding Level of Care Code ED Matching Machine Operator for Maya Aguirre
[2020-08-07 21:39] VITALS: BP 186/126; PULSE 94; RESP 16; O2SAT 99
--- NOTE | 2020-08-07 21:39 | XRR_ITS ---
PROCEDURE INFORMATION: Exam: XR Right Ribs with PA Chest Exam date and time: 08/07/2020 9:57 PM Age: 35 years old Clinical indication: Injury or trauma; Rib area; Blunt trauma (contusions or hematomas); Injury date: 08/07/20; Patient HX: Fall, right rib pain; Additional info: Fall, SOB TECHNIQUE: Imaging protocol: XR Right ribs with PA chest. Views: 3 views COMPARISON: No relevant prior studies available. FINDINGS: Lungs: Low lung volumes. No consolidation. Pleural spaces: Unremarkable. No pleural effusion. No pneumothorax. Heart/Mediastinum: Unremarkable. No cardiomegaly. Bones/joints: Unremarkable. XR/XR ribs RT mn 3V w [id number] IMPRESSION: No evidence of active cardiopulmonary disease.
[2020-08-07 22:30] VITALS: BP 169/110; PULSE 105; RESP 16; O2SAT 100
[2020-08-07] MEDS: ketorolac 60 mg/2 mL INJ IM (22:30)
== END 2020-08-07 22:31 | disposition home or self-care (01) ==
PROVIDERS: Emergency Provider Physician Assistant; PCP Family Medicine
DX: R07.89 Other chest pain (principal); I10 Essential (primary) hypertension; F17.210 Nicotine dependence, cigarettes, uncomplicated; W01.0XXA Fall on same level from slipping, tripping and stumbling without subsequent striking against object, initial encounter
CPT/HCPCS: 71101; 99283; J1885

== ENCOUNTER 2020-10-24 20:26 | Emergency (ER) | payer SELFPAY ==
--- NOTE | 2020-10-24 | CTR_ITS ---
PROCEDURE INFORMATION: Exam: CT Right Upper Extremity With Contrast, Forearm Exam date and time: 10/24/2020 9:40 PM Age: 35 years old Clinical indication: Swelling; Arm, lower; Right; Additional info: Cellulitis TECHNIQUE: Imaging protocol: CT of the Right upper extremity with intravenous contrast was performed. Exam focused on the forearm. Radiation optimization: All CT scans at this facility use at least one of these dose optimization techniques: automated exposure control; mA and/or kV adjustment per patient size (includes targeted exams where dose is matched to clinical indication); or iterative reconstruction. Contrast material: OMNI 300; Contrast volume: 95 ml; Contrast route: INTRAVENOUS (IV); COMPARISON: OT C-arm [facility] for Urology 05/14/2019 2:50 PM RADIATION DOSE METRICS: Total DLP (mGy-cm): 701.42 FINDINGS: Bones/joints: The bones are intact. No bone destruction or fracture identified. Soft tissues: Subcutaneous soft tissue edema in the posteromedial right upper arm and extending down the distal forearm. In the proximal posteromedial forearm, just beneath the skin surface, is a 1.5 x 4.2 x 4.4 cm suspected fluid collection with a peripheral rind of enhancement. CT/CT forearm RT w con [id number] IMPRESSION: 1. Findings suspicious for a 1.5 x 4.2 x 4.4 cm subcutaneous soft tissue abscess in the posteromedial proximal forearm. 2. Cellulitis in the right upper arm and forearm. Radiation Dose CTDIVOL = (mGy): DLP = 701.42 (mGy-cm)
[2020-10-24 20:34] VITALS: BP 205/130; PULSE 102; RESP 17; TEMP 37.2; O2SAT 98; BMI 27.3
[2020-10-24 20:41] VITALS: BP 160/100; PULSE 75; RESP 16
--- NOTE | 2020-10-24 21:04 | W.ED.SKABFB ---
HPI - Skin/Abscess/Foreign Bdy General: Chief complaint: Skin/Abscess/Foreign Body Stated complaint: possible spider bite, arm swelling Time Seen by Provider: 10/24/20 20:56 History of Present Illness: HPI narrative: Patient is a 35-year-old male who comes to the ED with a sore on right arm. Patient says he noticed it 2 days ago and its right by his elbow of his right arm. He says there is some redness and swelling that has continued to increase. He is unsure what caused pain and swelling and denies any injury. He did say that he was working on his car and he might of gotten some superficial cuts while doing that on his right arm. He says it is painful for him to straighten out his right elbow. He rates his pain in his right arm 10 out of 10 and he describes it as kind of a burning pain around his elbow. 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 Denies any fever, chills or emesis. Patient does endorse having some nausea. Patient denies any headache and states that he does have hypertension and is supposed to be ordered 2 blood pressure medications but has not been taking them. Patient denies any drug use. Associated symptoms: Deny chills, fever(s), nausea or vomiting Review of Systems Const: Denies: fever(s), chills or fatigue Eyes: Denies: change in vision or eye discomfort ENMT: Denies: throat pain, odynophagia, nasal discharge or nasal congestion Card: Denies: chest pain, palpitations, edema, swelling of feet/ankles, dyspnea on exertion or orthopnea Resp: Denies: dyspnea, productive cough or non-productive cough GI: Denies: abdominal pain, nausea, vomiting, diarrhea, constipation or hematochezia : Denies: flank pain, difficulty urinating, dysuria or hematuria Musc: Reports: extremity pain (right elbow pain and swelling); Denies: neck pain, back pain or extremity swelling Skin/Breast: Reports: new lesions (Pain, redness and swelling of the skin around right elbow.); Denies: rash Neuro: Denies: headache(s), numbness in extremities or weakness in extremities PFS ED PFSH: Medical History Essential hypertension Renal calculi Surgical History No pertinent past surgical history Social History Smoking and tobacco status: current every day smoker cigarettes Packs smoked per day: 0.5 Years cigarettes smoked: 12 Quit status (tobacco): not considering quitting Alcohol intake: never Current gender identity: Male Physical Exam Narrative: EXAM NARRATIVE: Patient is a 35-year-old male lying comfortably on exam bed when I enter the room. Patient appears to be under the influence of something and is talking fast and mumbling a lot. Const: COMMON NORMALS: no acute distress, patient oriented x3 and alert GENERAL APPEARANCE: cooperative and comfortable HENMT: COMMON NORMALS: normocephalic HEAD & SCALP: normocephalic MOUTH: Normal oral and palatal mucosa present THROAT: posterior oropharynx normal and uvula midline Neck/C-Spine: COMMON NORMALS: supple GENERAL: Yes normal visual inspection Resp: COMMON NORMALS: normal respiratory effort, No retractions, No use of accessory muscles and clear to auscultation bilaterally AUSCULTATION: clear to auscultation bilaterally Cardio: COMMON NORMALS: regular rate, regular rhythm, S1 normal heart sound present, S2 normal heart sound present, No gallops present (Cardio), No clicks present (Cardio), No murmurs present (Cardio) and Peripheral pulses 2+ throughout RATE: regular rate RHYTHM: regular rhythm HEART SOUNDS: S1 normal heart sound present and S2 normal heart sound present PERIPHERAL PULSES: Peripheral pulses 2+ throughout GI: COMMON NORMALS: Normal to inspection, nondistended, normoactive bowel sounds present, Soft to palpation, non-tender and no masses PALPATION: Yes Soft to palpation : COMMON NORMALS: Yes no CVA tenderness BLADDER/KIDNEY EXAM: Yes no CVA tenderness Back/Pelvis: COMMON NORMALS: no CVA tenderness Extremity: NARRATIVE EXTREMITY EXAM: Right arm?right elbow and forearm is swollen, erythemic and warm. 1+ pitting edema on right forearm as well. The area is tender and firm upon palpation. Nonfluctuant and indurated. GENERAL: Yes normal exam except as noted Neuro: COMMON NORMALS: patient oriented x3 and moves all extremities SENSORIUM/ORIENTATION: Yes alert Skin: NARRATIVE SKIN EXAM: Right arm?right elbow and forearm is swollen, erythemic and warm. The area is tender and firm upon palpation. Patient has a superficial abrasion near the elbow. 1+ pitting edema on right forearm as well. Nonfluctuant and indurated. GENERAL SKIN EXAM: dry skin Procedures Abscess I/D Site: upper extremity (right forearm and elbow) Side (if applicable): right Sedation/analgesia: other (pt given 4mg of morphine before procedure) Local Anesthetic: lidocaine 1% and with epi Amount of anesthesia used (mL): 10 Technique: incised with #11 blade Amount of fluid expressed (mL): 1 Irrigation: No Packing used?: none Course Vital Signs: Vital signs: Vital Signs Temperature 98 F 10/25/20 02:09 Pulse Rate 70 10/25/20 02:09 Respiratory Rate 17 10/25/20 02:09 Blood Pressure 160/88 10/25/20 02:09 Pulse Oximetry 99 10/25/20 02:09 MDM - Skin/Abscess/Foreign Bdy MDM Narrative: Medical decision making narrative: Patient is a 35-year-old male comes to the ED with right elbow swelling and pain. Symptoms started 2 days ago. Patient has a past medical history of MRSA and staph. Exam of right arm shows erythema, warmth, swelling and tenderness around the forearm and elbow. Patient has superficial abrasion near elbow. No palpable abscess noted. Exam findings suggestive of cellulitis. CT of right forearm showed cellulitis of the right upper arm and forearm and also a possible subcutaneous abscess on posterior medial proximal forearm. White blood cell count 18.1 and potassium 3.2 and the rest of the labs are unremarkable. Patient was given p.o. potassium while here in the ED. Patient was given IV Vancomycin and an abscess I&D was performed and a small amount of purulent drainage was removed. Abscess culture sent to lab. Patient was discharged home and diagnosed with abscess and cellulitis. He was told to come back to the ED in 24 to 48 hours to have abscess reevaluated. He was sent home with a prescription for clindamycin. Return to ED precautions given. Patient understood and agreed with plan. Lab Data: Attestation: I reviewed the patient's lab results. Labs: Lab Results 10/24/20 10/24/20 10/24/20 Range/Units 21:32 21:32 23:35 WBC 18.1 H (4.0-10.0) 10^3/ uL RBC 5.27 (4.1-5.3) 10^6/u L Hgb 15.1 (11.7-16.6) g/dL Hct 44.3 (42.0-52.0) % MCV 84.1 (80-94) fL MCH 28.7 (28.0-34.0) pg MCHC 34.1 (30.0-36.0) g/dL RDW 13.1 (12.1-15.1) % Plt Count 364 (130-400) 10^3/c mm MPV 8.7 (7.4-10.4) fL Neut % (Auto) 77.0 % Lymph % (Auto) 9.1 % Potter % (Auto) 12.9 % Eos % (Auto) 0.3 % Baso % (Auto) 0.3 % Neut # (Auto) 13.91 H (1.8-7.7) 10^3/u L Lymph # (Auto) 1.7 (0.8-4.8) 10^3/u L Potter # (Auto) 2.3 H (0.2-0.9) 10^3/u L Eos # (Auto) 0.1 (0.0-0.8) 10^3/u L Baso # (Auto) 0.1 (0.0-0.1) 10^3/u L Nucleated RBC % (a uto) 0 % Nucleated RBCs # 0.0 /100WBC Sodium 134 L (136-145) mmol/L Potassium 3.2 L (3.5-5.1) mmol/L Chloride 97 L (98-107) mmol/L Carbon Dioxide 28 (22-29) mmol/L Anion Gap 12.2 (5-19) BUN 8 (6-20) mg/dL Creatinine 0.7 (0.7-1.2) mg/dL GFR Calculation 129.9 (90-130) mL/min Glucose 100 (65-115) mg/dL Calculated Osmolal ity 276 L (285-295) mOsm/k g Calcium 8.7 (8.5-10.5) mg/dL Total Bilirubin 1.0 (0.15-1.2) mg/dL AST 19 (0-40) U/L ALT 14 (0-41) U/L Alkaline Phosphata se 105 (40-130) IU/L Total Protein 7.2 (6.6-8.7) g/dL Albumin 4.4 (3.5-5.2) g/dL Globulin 2.8 (1.3-4.6) g/dL Urine Color Yellow (Yellow) Urine Appearance Clear (CLEAR) Urine pH 7 (5-7) Ur Specific Gravit y 1.005 (1.005-1.030) Urine Protein Neg (Negative) Urine Glucose (UA) Norm (Normal) Urine Ketones 1+ H (Negative) Urine Blood Neg (Negative) Urine Nitrate Negative (Negative) Urine Bilirubin Neg (Negative) Urine Urobilinogen Norm (Negative) mg/dL Ur Leukocyte Alicia ase Negative (Negative) Urine RBC 0-4 H (0-2) /hpf Urine WBC None (0-5) /hpf Ur Squamous Epith Cells 0-4 H (0-5) /hpf Ur Transition Epit h Cell None /hpf Ur Renal Epithelia l Cell N /hpf Amorphous Sediment Not Reportable Urine Bacteria None (NONE) /hpf Urine Opiates Scre en (Negative) ng/mL Ur Barbiturates Sc reen (Negative) ng/mL Ur Phencyclidine S crn (Negative) ng/mL Ur Amphetamines Sc reen (Negative) ng/mL U Benzodiazepines Scrn (Negative) ng/mL Urine Cocaine Scre en (Negative) ng/mL U Marijuana (THC) Screen (Negative) ng/mL 10/24/20 Range/Units 23:35 WBC (4.0-10.0) 10^3/ uL RBC (4.1-5.3) 10^6/u L Hgb (11.7-16.6) g/dL Hct (42.0-52.0) % MCV (80-94) fL MCH (28.0-34.0) pg MCHC (30.0-36.0) g/dL RDW (12.1-15.1) % Plt Count (130-400) 10^3/c mm MPV (7.4-10.4) fL Neut % (Auto) % Lymph % (Auto) % Potter % (Auto) % Eos % (Auto) % Baso % (Auto) % Neut # (Auto) (1.8-7.7) 10^3/u L Lymph # (Auto) (0.8-4.8) 10^3/u L Potter # (Auto) (0.2-0.9) 10^3/u L Eos # (Auto) (0.0-0.8) 10^3/u L Baso # (Auto) (0.0-0.1) 10^3/u L Nucleated RBC % (a uto) % Nucleated RBCs # /100WBC Sodium (136-145) mmol/L Potassium (3.5-5.1) mmol/L Chloride (98-107) mmol/L Carbon Dioxide (22-29) mmol/L Anion Gap (5-19) BUN (6-20) mg/dL Creatinine (0.7-1.2) mg/dL GFR Calculation (90-130) mL/min Glucose (65-115) mg/dL Calculated Osmolal ity (285-295) mOsm/k g Calcium (8.5-10.5) mg/dL Total Bilirubin (0.15-1.2) mg/dL AST (0-40) U/L ALT (0-41) U/L Alkaline Phosphata se (40-130) IU/L Total Protein (6.6-8.7) g/dL Albumin (3.5-5.2) g/dL Globulin (1.3-4.6) g/dL Urine Color (Yellow) Urine Appearance (CLEAR) Urine pH (5-7) Ur Specific Gravit y (1.005-1.030) Urine Protein (Negative) Urine Glucose (UA) (Normal) Urine Ketones (Negative) Urine Blood (Negative) Urine Nitrate (Negative) Urine Bilirubin (Negative) Urine Urobilinogen (Negative) mg/dL Ur Leukocyte Alicia ase (Negative) Urine RBC (0-2) /hpf Urine WBC (0-5) /hpf Ur Squamous Epith Cells (0-5) /hpf Ur Transition Epit h Cell /hpf Ur Renal Epithelia l Cell /hpf Amorphous Sediment Urine Bacteria (NONE) /hpf Urine Opiates Scre en Positive H (Negative) ng/mL Ur Barbiturates Sc reen Negative (Negative) ng/mL Ur Phencyclidine S crn Negative (Negative) ng/mL Ur Amphetamines Sc reen Positive H (Negative) ng/mL U Benzodiazepines Scrn Negative (Negative) ng/mL Urine Cocaine Scre en Negative (Negative) ng/mL U Marijuana (THC) Screen Positive H (Negative) ng/mL Imaging Data^: Other CT: Attestation: I personally reviewed and interpreted this imaging study as follows: Radiologist's impression: [employer] [place] [address] CT Scan Report Signed Patient: Ramón Otero Unit #: [id number] : 1985 Age/Sex: 35 / M ADM Date: 10/24/20 Loc: ER Room/Bed: Attending Dr: Ordering Provider/Ordering MD: Paul Marinelli Date of Service: 10/24/20 Procedure(s): CT forearm RT w con Accession Number(s): [id number] Report Number: [id number] PROCEDURE INFORMATION: Exam: CT Right Upper Extremity With Contrast, Forearm Exam date and time: 10/24/2020 9:40 PM Age: 35 years old Clinical indication: Swelling; Arm, lower; Right; Additional info: Cellulitis TECHNIQUE: Imaging protocol: CT of the Right upper extremity with intravenous contrast was performed. Exam focused on the forearm. Radiation optimization: All CT scans at this facility use at least one of these dose optimization techniques: automated exposure control; mA and/or kV adjustment per patient size (includes targeted exams where dose is matched to clinical indication); or iterative reconstruction. Contrast material: OMNI 300; Contrast volume: 95 ml; Contrast route: INTRAVENOUS (IV); COMPARISON: OT C-arm [place] for Urology 05/14/2019 2:50 PM RADIATION DOSE METRICS: Total DLP (mGy-cm): 701.42 FINDINGS: Bones/joints: The bones are intact. No bone destruction or fracture identified. Soft tissues: Subcutaneous soft tissue edema in the posteromedial right upper arm and extending down the distal forearm. In the proximal posteromedial forearm, just beneath the skin surface, is a 1.5 x 4.2 x 4.4 cm suspected fluid collection with a peripheral rind of enhancement. CT/CT forearm RT w con [id number] IMPRESSION: 1. Findings suspicious for a 1.5 x 4.2 x 4.4 cm subcutaneous soft tissue abscess in the posteromedial proximal forearm. 2. Cellulitis in the right upper arm and forearm. Radiation Dose CTDIVOL = (mGy): DLP = 701.42 (mGy-cm) Dictated By: Jacky Washburn Signed By: Jacky Washburn Signed Date/Time: 10/24/202258 DD/ 57 Discharge Plan Discharge Patient Disposition: Home Clinical Impression: Abscess of skin or subcutaneous tissue Qualifiers: Site of cutaneous abscess: extremity Site of cutaneous abscess of extremity: upper extremity Laterality: right Qualified Code(s): L02.413 - Cutaneous abscess of right upper limb Cellulitis Qualifiers: Site of cellulitis: extremity Site of cellulitis of extremity: upper extremity Laterality: right Qualified Code(s): L03.113 - Cellulitis of right upper limb Condition: Stable Prescriptions: New clindamycin HCl 150 mg capsule 300 mg PO QID 10 Days Qty: 80 RF: 0 ibuprofen 800 mg tablet 800 mg PO Q8H PRN (Reason: pain) Qty: 12 RF: 0 No Action lisinopril 20 mg tablet 20 mg PO DAILY Qty: 30 RF: 0 metoprolol succinate 50 mg tablet extended release 24 hr 50 mg PO DAILY Qty: 30 RF: 0 duloxetine [Cymbalta] 30 mg capsule,delayed release(DR/EC) 30 mg PO DAILY Qty: 30 RF: 0 ibuprofen 800 mg tablet 800 mg PO Q8H PRN (Reason: pain) Qty: 30 RF: 0 Discharge Orders: Discharge ED (Routine); Ordered 10/25/20 Ordered By: Paul Marinelli Referrals: Rosa Isela Reynolds DO [Primary Care Provider] - Discharge Diet: Regular Discharge Activity: Increase activity as tolerated Patient Instructions: Cellulitis (ED), Abscess Incision and Drainage (ED), Abscess (ED) Activity Restrictions/Additional Instructions: Return to the ED to have an abscess rechecked in 24 to 48 hours. Take full course of antibiotics as prescribed. Return to the ER or your medical provider if condition worsens. Follow-up with your PCP and 10 days to recheck your blood pressure and to discuss blood pressure medication management. Please read and understand discharge instructions. Thank you for choosing [facility] for your healthcare needs today. Please realize this is an emergency room and that we are providing you with a medical screening exam and this may not be complete and all inclusive of all the testing and or work up that you may need to determine your ailment or severity of your illness. It is very important that you follow up as instructed or that you return to the Emergency Department should you have concerns or if your condition changes or worsens in any way. Coding Level of Care Code ED Tool Dresser for Maya Aguirre Exam Comprehensive
[2020-10-24] MEDS: HYDROcodone-acetaminophen 7.5-325 mg Tablet 1 TAB PO (21:27)
[2020-10-24 21:38] LABS: Basophils # 0.1 10^3/uL (0.0-0.1); Basophils % 0.3 %; Eosinophils # 0.1 10^3/uL (0.0-0.8); Eosinophils % 0.3 %; Hematocrit 44.3 % (42.0-52.0); Hemoglobin 15.1 g/dL (11.7-16.6); Lymphocytes # 1.7 10^3/uL (0.8-4.8); Lymphocytes % 9.1 %; Mean Corpuscular HGB Conc 34.1 g/dL (30.0-36.0); Mean Corpuscular Hemoglobin 28.7 pg (28.0-34.0); Mean Corpuscular Volume 84.1 fL (80-94); Mean Platelet Volume 8.7 fL (7.4-10.4); Monocytes # 2.3 10^3/uL (0.2-0.9); Monocytes % 12.9 %; Neutrophils # 13.91 10^3/uL (1.8-7.7); Nucleated Red Blood Cells % 0 %; Platelet Count 364 10^3/cmm (130-400); Red Blood Count 5.27 10^6/uL (4.1-5.3); Red Cell Distribution Width 13.1 % (12.1-15.1); White Blood Count 18.1 10^3/uL (4.0-10.0)
[2020-10-24] MEDS: sodium chloride 0.9% 1,000 ML 999 ML IV (21:38)
[2020-10-24] MEDS: vancomycin 1,500 MG/300 ML PIGGYBACK 200 MG IV (21:41)
[2020-10-24] MEDS: iohexol 300 mg/mL 100 mL Btl IV (21:48)
[2020-10-24 21:53] LABS: Alanine Aminotransferase 14 U/L (0-41); Albumin Level 4.4 g/dL (3.5-5.2); Alkaline Phosphatase 105 IU/L (40-130); Anion Gap 12.2 (5-19); Aspartate Amino Transferase 19 U/L (0-40); Blood Urea Nitrogen 8 mg/dL (6-20); Calcium 8.7 mg/dL (8.5-10.5); Carbon Dioxide 28 mmol/L (22-29); Chloride 97 mmol/L (98-107); Globulin 2.8 g/dL (1.3-4.6); Glomerular Filtration Rate 129.9 mL/min (90-130); Glucose 100 mg/dL (65-115); Osmolality Calculated 276 mOsm/kg (285-295); Potassium 3.2 mmol/L (3.5-5.1); Sodium 134 mmol/L (136-145); Total Protein 7.2 g/dL (6.6-8.7)
[2020-10-24] MEDS: potassium chloride ER 20 mEq Tablet PO (23:03)
[2020-10-24 23:47] LABS: Bilirubin Urine Neg (Negative); Blood Urine Neg (Negative); Glucose Urine UA Norm (Normal); Ketones Urine 1+ (Negative); Leukocyte Esterase Urine Negative (Negative); Nitrate Urine Negative (Negative); Protein Urine Neg (Negative); RBC Urine 0-4 /hpf (0-2); Renal Epithelial Cells Urine N /hpf; Specific Gravity, Urine 1.005 (1.005-1.030); Squamous Epithelial Cell Urine 0-4 /hpf (0-5); Urine Appearance Clear (CLEAR); Urine Color Yellow (Yellow); Urobilinogen Urine Norm (Negative); pH Urine 7 (5-7)
[2020-10-24 23:48] LABS: Add Urine Culture? No
[2020-10-24 23:51] VITALS: RESP 17; O2SAT 99
[2020-10-24] MEDS: morphine 4 mg/mL SDV 1 mL IVP (23:51)
[2020-10-24 23:52] LABS: Amphetamines Screen Urine Positive (Negative); Barbiturates Screen Urine Negative (Negative); Benzodiazepines Screen Urine Negative (Negative); Cocaine Screen Urine Negative (Negative); Opiate Screen Urine Positive (Negative); PCP Screen Urine Negative (Negative); THC Screen Urine Positive (Negative)
[2020-10-25 01:59] VITALS: BP 160/90; PULSE 75; O2SAT 99
[2020-10-25 02:09] VITALS: BP 160/88; PULSE 70; RESP 17; TEMP 36.6; O2SAT 99
--- NOTE | 2020-10-27 15:56 | PC.NURSE ---
critical lab result given to ezequiel and no further treatment needed
== END 2020-10-25 02:11 | disposition home or self-care (01) ==
PROVIDERS: Emergency Provider Physician Assistant; PCP Family Medicine
DX: L02.413 Cutaneous abscess of right upper limb (principal); L03.113 Cellulitis of right upper limb; I10 Essential (primary) hypertension; F17.210 Nicotine dependence, cigarettes, uncomplicated; Z79.899 Other long term (current) drug therapy
CPT/HCPCS: 73201; 80053; 80306; 81001; 85025; 87040; 87070; 87075; 87077; 87186; 87205; 96365; 96375; 99284; J2270; J3370; J7030; Q9967

== ENCOUNTER 2020-12-24 11:13 | Emergency (ER) | payer SELFPAY ==
[2020-12-24 11:23] VITALS: BP 189/127; PULSE 96; RESP 18; TEMP 37; O2SAT 98; BMI 27.6
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
[2020-12-24 13:13] VITALS: PULSE 97; RESP 18; O2SAT 99
[2020-12-24] MEDS: diphenhydrAMINE 50 mg Capsule PO (13:22)
[2020-12-24 13:27] VITALS: BP 172/89; PULSE 97; RESP 18; O2SAT 99
== END 2020-12-24 13:29 | disposition home or self-care (01) ==
PROVIDERS: Emergency Provider Family Medicine; PCP Family Medicine
DX: L25.3 Unspecified contact dermatitis due to other chemical products (principal); I10 Essential (primary) hypertension; F17.210 Nicotine dependence, cigarettes, uncomplicated
CPT/HCPCS: 96372; 99283; J2930; Q0163

== ENCOUNTER 2021-02-09 06:04 | Inpatient (IN) | payer MEDICARE, SELFPAY ==
[2021-02-09] VITALS (12 sets, daily range): BP systolic 142–165; BP diastolic 78–116; PULSE 79–118; RESP 13–32; TEMP 36.4–37.1; O2SAT 90–96; BMI 26.2; BMI 29.7
--- NOTE | 2021-02-09 06:20 | ECG_ITS ---
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 Measurements Intervals [place] Rate: 99 P: 38 CA: 156 QRS: 127 QRSD: 113 T: 76 QT: 367 QTc: 472 Interpretive Statements SINUS RHYTHM POSSIBLE LEFT ATRIAL ENLARGEMENT [-0.1mV P-WAVE IN V1/V2] INCOMPLETE RIGHT BUNDLE BRANCH BLOCK [90+ ms QRS DURATION, TERMINAL R IN V1/V2, 40+ ms S IN I/aVL/V4/V5/V6] POSSIBLE RIGHT VENTRICULAR HYPERTROPHY [SOME/ALL OF: PROMINENT R IN V1, LATE TRANSITION, RAD, SAMARIA, SSS] No previous ECG available for comparison Electronically Signed On 02-10-2021 9:05:10 CDT by Demetria Barrientos M.D. [email or web address]
--- NOTE | 2021-02-09 06:20 | XRR_ITS ---
PROCEDURE INFORMATION: Exam: XR Chest Exam date and time: 02/09/2021 6:20 AM Age: 35 years old Clinical indication: Other: Headche; Patient HX: Headache; Additional info: Dyspnea TECHNIQUE: Imaging protocol: XR of the chest. Views: 1 view. COMPARISON: CR XR ribs RT mn 3V w CXR1V [id number] 08/07/2020 9:40 PM FINDINGS: Lungs: Low lung volumes. There is increased lung markings and hazy airspace opacities throughout both lungs, involving mainly the lower lungs. No pleural effusion or pneumothorax. Pleural spaces: See Lungs finding. Heart/Mediastinum: Stable cardiomediastinal silhouette. Bones/joints: Unremarkable. XR/XR chest 1V portable [id number] IMPRESSION: Imaging findings concerning for pneumonia.
--- NOTE | 2021-02-09 07:06 | W.ED.GENADLT ---
HPI - General Adult General: Chief complaint: Headache Stated complaint: headache, sob Time Seen by Provider: 02/09/21 06:05 History of Present Illness: HPI narrative: CC: Shortness of breath, headache and generalized weakness HPI: This is a [35] yo patient w/ no known PMH presenting to the ED with malaise, generalized weakness, cough, severe headache and fever at home x 2days. Since onset of symptoms, he reports shortness of breath and decreased PO intake. NO recent travel. Endorses no sick contacts around. Denies vomiting, endorses 1 episode of liquid diarrhea. Denies chest pain, diaphoresis, other GI or complaints. Denies any pleuritic chest pain, recent surgery/immobilization/travel, or hematemesis or hx of VTE in the past. Patient report headache is gradual onset x 1 day and localized to the bilateral frontal head. This is not worst headache of life and sudden in onset. Did not reach maximal intensity over first 1-2 hours. No hx of aneurysmal or VTE in the past. Onset: 1 days ago Duration: ongoing for the last 1 day Location: home Severity: moderate Review of Systems Narrative: Constitutional: +subjective fever, +generalized weakness HEENT: No vision changes CV: No chest pain, no palpitations PULM: +cough, +dyspnea. GI: No abdominal pain, +N/-V/+D. : No dysuria MSKEL: No muscle pain SKIN: No new rashes, no lesions. NEURO: +headache, no focal weakness. HEME: No visible bruises PSYCH: Normal mood PFS ED PFSH: Medical History (Updated 02/09/21 @ 14:29 by Francisco Chapman MD) ADHD, predominantly inattentive type Anxiety Essential hypertension Headache Hypoxemia Knee pain, bilateral Mood disorder in sleep apnea Nicotine dependence, cigarettes, with unspecified nicotine-induced disorders Persistent mood [affective] disorder, unspecified Pneumonia Pneumonia due to 2019-nCoV Post concussion syndrome Renal calculi Right shoulder pain Traumatic brain injury with loss of consciousness Surgical History No pertinent past surgical history Family History Other Hypertension Social History Smoking and tobacco status: current every day smoker cigarettes Packs smoked per day: 0.5 Years cigarettes smoked: 12 Quit status (tobacco): not considering quitting Alcohol intake: never Substance/Drug Use: current 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 Awake, alert, and oriented to self, year, month, location, and situation.? Following simple axial and appendicular commands.? Has appropriate fund of knowledge, comprehension, and insight.? Able to recall and understands pertinent aspects of medical history and current treatment status.? ? Language? Speech is fluent without word-finding difficulties.? Intact naming, expression, operator receptionist, and repetition.? ? Cranial nerves? 2,3,4,6: PERRL, EOMI with no nystagmus. 5: Intact sensation to light touch, symmetric? 7: Smile symmetrical, no facial droop.? 8: Hearing grossly intact.? 9,10: Normal palate movement.? 11: Normal strength in trapezius bilaterally 12: Tongue protrudes midline.? ? Motor examination? Normal bulk & tone. Strength as follows (R/L): Delts (5/5), Biceps (5/5), Triceps (5/5), Wrist ext (5/5), hip flexors (5/5), plantarflexors (5/5), dorsiflexors (5/5). ? Sensation? Light Touch: Grossly intact and equal in upper and lower extremities bilaterally? Romberg: Negative.? Distal joint position sense intact ? Coordination? Vumznn-lb-tpdx-finger movements intact without dysmetria or past-pointing.? Rapid fingertaps: preserved amplitude without decriment.? No tremor, myoclonus or truncal ataxia.? ? Gait/stance? Steady, normal narrow base gait with appropriate arm swing and turning.? Tandem gait without hesitation or loss of balance. PSYCH: Normal mood and affect. Course Vital Signs: Vital signs: Vital Signs Temperature 98.5 F 02/11/21 11:41 Pulse Rate 85 02/11/21 11:41 Respiratory Rate 28 H 02/11/21 11:41 Blood Pressure 135/81 02/11/21 11:41 Pulse Oximetry 90 02/11/21 11:41 MDM - General Adult MDM Narrative: Medical decision making narrative: [35]yo patient presenting to the ED with shortness of breath, cough, and malaise, severe headache x 1 day. On exam, patient appears to be dry, tachycardic. Neuro exam wnl. No signs of menigismus or nuchal rigidity Lab work-up showed white count of 14 K, Covid antigen negative, chest x-ray concerning for diffuse pneumonia. Troponin elevated at 42. Despite treatment with IVF, Benadryl, and Reglan, patient continues to have persistent headache. Patient was made to order CT a chest and CT head for further evaluation. EKG showed HR of 99, right axis, DA in V1-V2, poor R wave progression concerning for right heart strain. CTA chest showed peumonitis CT brain showed no focal findings. Cannot rule out pulmonary emboli at this time given motion artefect. Patient reports headache significantly improved now with medication. No suspicion for meningitis given no nuchal rigidity and consternations of other symtoms (cough, generalized weakness, loose stool) and SAH (no excessive coughing/straining, no family hx of aneurysm, no sudden onset of headache, and localization to the bilateral front). Given troponin elevation, acute hypoxemia due to symptoms x 1 day, and negative cvoid patient will be admitted for further workup. Disposition: Admission Lab Data: Labs: Lab Results 02/09/21 02/09/21 02/09/21 Range/Units 06:20 06:25 06:25 WBC 14.0 H (4.0-10.0) 10^3/ uL RBC 5.75 H (4.1-5.3) 10^6/u L Hgb 15.8 (11.7-16.6) g/dL Hct 46.6 (42.0-52.0) % MCV 81.0 (80-94) fl MCH 27.5 L (28.0-34.0) pg MCHC 33.9 (30.0-36.0) g/dL RDW 13.1 (12.1-15.1) % Plt Count 250 (130-400) 10^3/c mm MPV 9.8 (7.4-10.4) fL Neut % (Auto) 83.8 % Lymph % (Auto) 5.6 % [place] % (Auto) 9.2 % Eos % (Auto) 0.2 % Baso % (Auto) 0.4 % Neut # (Auto) 11.70 H (1.8-7.7) 10^3/u L Lymph # (Auto) 0.8 (0.8-4.8) 10^3/u L [place] # (Auto) 1.3 H (0.2-0.9) 10^3/u L Eos # (Auto) 0.0 (0.0-0.8) 10^3/u L Baso # (Auto) 0.1 (0.0-0.1) 10^3/u L Nucleated RBC % (a uto) 0 % Nucleated RBCs # 0.0 /100WBC PT 14.60 (12.1-14.9) SECO NDS INR 1.11 (0.8-1.2) APTT (23.9-36.7) SECO NDS Fibrinogen (174-498) mg/dL D-Dimer (0-0.59) ug/mIFE U Sodium (136-145) mmol/L Potassium (3.5-5.1) mmol/L Chloride (98-107) mmol/L Carbon Dioxide (22-29) mmol/L Anion Gap (5-19) BUN (6-20) mg/dL Creatinine (0.7-1.2) mg/dL GFR Calculation (90-130) mL/min Glucose (65-115) mg/dL Calculated Osmolal ity (285-295) mOsm/k g Lactic Acid (0.5-2.2) mmol/L Lactate (0.5-2.2) mmol/L Calcium (8.5-10.5) mg/dL Magnesium (1.7-2.3) mg/dL Total Bilirubin (0.15-1.2) mg/dL AST (0-40) U/L ALT (0-41) U/L Alkaline Phosphata se (40-130) IU/L Troponin T Gen 5 n g/L (0-15) ng/L C-Reactive Protein (0.0-4.9) mg/L NT-Pro-B Natriuret Pep (0-125) pg/mL Total Protein (6.6-8.7) g/dL Albumin (3.5-5.2) g/dL Globulin (1.3-4.6) g/dL Lipase (13-60) U/L TSH (0.27-4.20) uIU/ mL Salicylates (3-10) mg/dL Acetaminophen (10-30) ug/mL Ethyl Alcohol (0-10) mg/dL Nasal/Oral COVID-1 9 PCR SARS-CoV-2 Ag (Rap id) Negative (Negative) 02/09/21 02/09/21 02/09/21 Range/Units 06:25 06:25 06:25 WBC (4.0-10.0) 10^3/ uL RBC (4.1-5.3) 10^6/u L Hgb (11.7-16.6) g/dL Hct (42.0-52.0) % MCV (80-94) fl MCH (28.0-34.0) pg MCHC (30.0-36.0) g/dL RDW (12.1-15.1) % Plt Count (130-400) 10^3/c mm MPV (7.4-10.4) fL Neut % (Auto) % Lymph % (Auto) % [place] % (Auto) % Eos % (Auto) % Baso % (Auto) % Neut # (Auto) (1.8-7.7) 10^3/u L Lymph # (Auto) (0.8-4.8) 10^3/u L [place] # (Auto) (0.2-0.9) 10^3/u L Eos # (Auto) (0.0-0.8) 10^3/u L Baso # (Auto) (0.0-0.1) 10^3/u L Nucleated RBC % (a uto) % Nucleated RBCs # /100WBC PT (12.1-14.9) SECO NDS INR (0.8-1.2) APTT 31.9 (23.9-36.7) SECO NDS Fibrinogen 520 H (174-498) mg/dL D-Dimer 1.56 H (0-0.59) ug/mIFE U Sodium 131 L (136-145) mmol/L Potassium 3.0 L (3.5-5.1) mmol/L Chloride 92 L (98-107) mmol/L Carbon Dioxide 27 (22-29) mmol/L Anion Gap 15.0 (5-19) BUN 6 (6-20) mg/dL Creatinine 0.8 (0.7-1.2) mg/dL GFR Calculation 111.3 (90-130) mL/min Glucose 116 H (65-115) mg/dL Calculated Osmolal ity 271 L (285-295) mOsm/k g Lactic Acid 1.6 (0.5-2.2) mmol/L Lactate (0.5-2.2) mmol/L Calcium 8.6 (8.5-10.5) mg/dL Magnesium (1.7-2.3) mg/dL Total Bilirubin 0.7 (0.15-1.2) mg/dL AST 18 (0-40) U/L ALT 18 (0-41) U/L Alkaline Phosphata se 87 (40-130) IU/L Troponin T Gen 5 n g/L (0-15) ng/L C-Reactive Protein (0.0-4.9) mg/L NT-Pro-B Natriuret Pep (0-125) pg/mL Total Protein 6.5 L (6.6-8.7) g/dL Albumin 3.7 (3.5-5.2) g/dL Globulin 2.8 (1.3-4.6) g/dL Lipase 20 (13-60) U/L TSH (0.27-4.20) uIU/ mL Salicylates (3-10) mg/dL Acetaminophen (10-30) ug/mL Ethyl Alcohol (0-10) mg/dL Nasal/Oral COVID-1 9 PCR SARS-CoV-2 Ag (Rap id) (Negative) 02/09/21 02/09/21 02/09/21 Range/Units 06:25 06:25 06:25 WBC (4.0-10.0) 10^3/ uL RBC (4.1-5.3) 10^6/u L Hgb (11.7-16.6) g/dL Hct (42.0-52.0) % MCV (80-94) fl MCH (28.0-34.0) pg MCHC (30.0-36.0) g/dL RDW (12.1-15.1) % Plt Count (130-400) 10^3/c mm MPV (7.4-10.4) fL Neut % (Auto) % Lymph % (Auto) % [place] % (Auto) % Eos % (Auto) % Baso % (Auto) % Neut # (Auto) (1.8-7.7) 10^3/u L Lymph # (Auto) (0.8-4.8) 10^3/u L [place] # (Auto) (0.2-0.9) 10^3/u L Eos # (Auto) (0.0-0.8) 10^3/u L Baso # (Auto) (0.0-0.1) 10^3/u L Nucleated RBC % (a uto) % Nucleated RBCs # /100WBC PT (12.1-14.9) SECO NDS INR (0.8-1.2) APTT (23.9-36.7) SECO NDS Fibrinogen (174-498) mg/dL D-Dimer (0-0.59) ug/mIFE U Sodium (136-145) mmol/L Potassium (3.5-5.1) mmol/L Chloride (98-107) mmol/L Carbon Dioxide (22-29) mmol/L Anion Gap (5-19) BUN (6-20) mg/dL Creatinine (0.7-1.2) mg/dL GFR Calculation (90-130) mL/min Glucose (65-115) mg/dL Calculated Osmolal ity (285-295) mOsm/k g Lactic Acid (0.5-2.2) mmol/L Lactate (0.5-2.2) mmol/L Calcium (8.5-10.5) mg/dL Magnesium (1.7-2.3) mg/dL Total Bilirubin (0.15-1.2) mg/dL AST (0-40) U/L ALT (0-41) U/L Alkaline Phosphata se (40-130) IU/L Troponin T Gen 5 n g/L 43 H (0-15) ng/L C-Reactive Protein 110.8 H (0.0-4.9) mg/L NT-Pro-B Natriuret Pep 1934 H (0-125) pg/mL Total Protein (6.6-8.7) g/dL Albumin (3.5-5.2) g/dL Globulin (1.3-4.6) g/dL Lipase (13-60) U/L TSH (0.27-4.20) uIU/ mL Salicylates (3-10) mg/dL Acetaminophen (10-30) ug/mL Ethyl Alcohol (0-10) mg/dL Nasal/Oral COVID-1 9 PCR SARS-CoV-2 Ag (Rap id) (Negative) 02/09/21 02/09/21 02/09/21 Range/Units 06:25 08:00 09:35 WBC (4.0-10.0) 10^3/ uL RBC (4.1-5.3) 10^6/u L Hgb (11.7-16.6) g/dL Hct (42.0-52.0) % MCV (80-94) fl MCH (28.0-34.0) pg MCHC (30.0-36.0) g/dL RDW (12.1-15.1) % Plt Count (130-400) 10^3/c mm MPV (7.4-10.4) fL Neut % (Auto) % Lymph % (Auto) % [place] % (Auto) % Eos % (Auto) % Baso % (Auto) % Neut # (Auto) (1.8-7.7) 10^3/u L Lymph # (Auto) (0.8-4.8) 10^3/u L [place] # (Auto) (0.2-0.9) 10^3/u L Eos # (Auto) (0.0-0.8) 10^3/u L Baso # (Auto) (0.0-0.1) 10^3/u L Nucleated RBC % (a uto) % Nucleated RBCs # /100WBC PT (12.1-14.9) SECO NDS INR (0.8-1.2) APTT (23.9-36.7) SECO NDS Fibrinogen (174-498) mg/dL D-Dimer (0-0.59) ug/mIFE U Sodium (136-145) mmol/L Potassium (3.5-5.1) mmol/L Chloride (98-107) mmol/L Carbon Dioxide (22-29) mmol/L Anion Gap (5-19) BUN (6-20) mg/dL Creatinine (0.7-1.2) mg/dL GFR Calculation (90-130) mL/min Glucose (65-115) mg/dL Calculated Osmolal ity (285-295) mOsm/k g Lactic Acid (0.5-2.2) mmol/L Lactate 0.8 (0.5-2.2) mmol/L Calcium (8.5-10.5) mg/dL Magnesium 1.8 (1.7-2.3) mg/dL Total Bilirubin (0.15-1.2) mg/dL AST (0-40) U/L ALT (0-41) U/L Alkaline Phosphata se (40-130) IU/L Troponin T Gen 5 n g/L (0-15) ng/L C-Reactive Protein (0.0-4.9) mg/L NT-Pro-B Natriuret Pep (0-125) pg/mL Total Protein (6.6-8.7) g/dL Albumin (3.5-5.2) g/dL Globulin (1.3-4.6) g/dL Lipase (13-60) U/L TSH 0.41 (0.27-4.20) uIU/ mL Salicylates < 0.3 L (3-10) mg/dL Acetaminophen < 5.0 L (10-30) ug/mL Ethyl Alcohol < 10 (0-10) mg/dL Nasal/Oral COVID-1 9 PCR Not detected SARS-CoV-2 Ag (Rap id) (Negative) Imaging Data^: Other Imaging: Radiologist's impression: [address] [id number] ReportSigned Patient: Ramón Otero #: [id number]: 1985Acct#:[id number]/Sex: 35 / MADM Date: 02/09/21Loc: ERRoom/Bed:Attending Dr: Ordering Provider/Ordering MD: Mya Solorio MD Date of Service: 02/09/21 Procedure(s): XR chest 1V portable [id number] Accession Number(s): [id number] Report Number: [id number] PROCEDURE INFORMATION: Exam: XR Chest Exam date and time: 02/09/2021 6:20 AM Age: 35 years old Clinical indication: Other: Headche; Patient HX: Headache; Additional info: Dyspnea TECHNIQUE: Imaging protocol: XR of the chest. Views: 1 view. COMPARISON: CR XR ribs RT mn 3V w CXR1V [id number] 08/07/2020 9:40 PM FINDINGS: Lungs: Low lung volumes. There is increased lung markings and hazy airspace opacities throughout both lungs, involving mainly the lower lungs. No pleural effusion or pneumothorax. Pleural spaces: See Lungs finding. Heart/Mediastinum: Stable cardiomediastinal silhouette. Bones/joints: Unremarkable. XR/XR chest 1V portable [id number] IMPRESSION: Imaging findings concerning for pneumonia. Dictated By:Nagi Aguilar By:Nagi Aguilar Date/Time:02/09/[address] [id number] Scan ReportSigned Patient: Ramón Otero #: [id number]: 1985Acct#:[id number]/Sex: 35 / MADM Date: 02/09/21Loc: ERRoom/Bed:Attending Dr: Ordering Provider/Ordering MD: Mya Solorio MD Date of Service: 02/09/21 Procedure(s): CT angio chest PE protcl [id number] Accession Number(s): [id number] Report Number: [id number] WS: [id number] CT CHEST ANGIOGRAPHY WITH REFORMATS HISTORY: right heart strain on EKG TECHNIQUE: Contiguous axial images are obtained through the chest during arterial injection of intravenous contrast. Images are reconstructed to evaluate the pulmonary arteries. MIP imaging also reviewed. All CT scans at [facility] use at least one of these dose optimization techniques: automated exposure control; mA and/or kV adjustment per patient size (includes targeted exams where dose is matched to clinical indication); or iterative reconstruction. CONTRAST: Omnipaque 350; 95 mL IV. DLP: 551.59 mGy.cm COMPARISON: None available. Suboptimal opacification of the pulmonary arteries. Centrally there is no pulmonary embolism. Beyond the lobar branches the opacification is significantly limited secondary to breathing motion artifact. Pulmonary artery size is equal to the aorta. Normal appearance of the thoracic aorta. No RIGHT heart strain. LEFT atrium and ventricle are mildly prominent. No pericardial or pleural effusions. Significant motion artifact throughout both lungs. There are focal areas of patchy opacifications and groundglass opacification. No dense consolidations. No effusion. There are numerous mediastinal and hilar lymph nodes. These lymph nodes are subcentimeter and measure up to 9 mm. The largest at the LEFT hilum. Liver is slightly enlarged. No adrenal mass. CT/CT angio chest PE protcl [id number] IMPRESSION: 1. Study is significantly limited due to breathing motion artifact. 2. No central pulmonary embolism. Beyond the lobar branches the opacification is limited due to phase of injection and motion. 3. Diffuse scattered groundglass opacifications probably due to pneumonitis. 4. No RIGHT heart strain. 5. Mild LEFT heart enlargement. 6. Numerous small mediastinal and hilar lymph nodes are probably reactive. Dictated By:Ermelinda Sandoval DOSigned By:Ermelinda Sandoval DOSigned Date/Time:02/09/2143DD/ [address] [id number] Scan ReportSigned Patient: Ramón Otero #: [id number]: 1985Acct#:[id number]/Sex: 35 / MADM Date: 02/09/21Loc: ERRoom/Bed:Attending Dr: Ordering Provider/Ordering MD: Mya Solorio MD Date of Service: 02/09/21 Procedure(s): CT head wo con* [id number] Accession Number(s): [id number] Report Number: [id number] WS: [id number] CT HEAD NONCONTRAST HISTORY: severe headache not improving with meds TECHNIQUE: Contiguous axial imaging performed through the brain in 2.5 mm imaging. Bone and soft tissue windows. Sagittal and coronal reformats reviewed. All CT scans at [facility] use at least one of these dose optimization techniques: automated exposure control; mA and/or kV adjustment per patient size (includes targeted exams where dose is matched to clinical indication); or iterative reconstruction. DLP: 4618.57 mGy.cm COMPARISON: None available. Study is significantly limited by motion artifact despite multiple attempts. Small areas of hemorrhage, especially subarachnoid hemorrhage would be obscured. No acute intracranial hemorrhage, midline shift or mass effect. No atrophy or prior infarcts or herniation. Ventricles: Normal size with no hydrocephalus. Paranasal sinuses: Mild mucoperiosteal thickening in the maxillary sinuses. No air-fluid levels. Mastoid air cells: Well pneumatized. Calvarium and scalp: Skull is intact with no soft tissue edema or swelling. CT/CT head wo con* [id number] IMPRESSION: 1. Quality of this examination is limited by motion. 2. Small areas of subarachnoid hemorrhage could be obscured with this amount of motion. 3. No midline shift or large areas of hemorrhage. Dictated By:Ermelinda Sandoval DOSigned By:Ermelinda Sandoval DOSigned Date/Time:02/09/21 0938DD/ 0935 Discharge Plan Discharge Patient Disposition: Admitted As Inpatient Admit Provider: Francisco Chapman Clinical Impression: Pneumonia due to 2019-nCoV, Headache, Hypoxemia Condition: Stable Coding Level of Care Code ED Warp Tying Machine Tender for Maya Aguirre
[2021-02-09 07:11] LABS: Basophils # 0.1 10^3/uL (0.0-0.1); Basophils % 0.4 %; Eosinophils % 0.2 %; Hematocrit 46.6 % (42.0-52.0); Hemoglobin 15.8 g/dL (11.7-16.6); Lymphocytes # 0.8 10^3/uL (0.8-4.8); Lymphocytes % 5.6 %; Mean Corpuscular HGB Conc 33.9 g/dL (30.0-36.0); Mean Corpuscular Hemoglobin 27.5 pg (28.0-34.0); Mean Platelet Volume 9.8 fL (7.4-10.4); Monocytes # 1.3 10^3/uL (0.2-0.9); Monocytes % 9.2 %; Neutrophils % 83.8 %; Nucleated Red Blood Cells % 0 %; Platelet Count 250 10^3/cmm (130-400); Red Blood Count 5.75 10^6/uL (4.1-5.3); Red Cell Distribution Width 13.1 % (12.1-15.1)
[2021-02-09 07:14] LABS: INR 1.11 (0.8-1.2)
[2021-02-09 07:26] LABS: Lactic Sepsis W/Reflex 1.6 mmol/L (0.5-2.2)
[2021-02-09 07:27] LABS: Alanine Aminotransferase 18 U/L (0-41); Albumin Level 3.7 g/dL (3.5-5.2); Alkaline Phosphatase 87 IU/L (40-130); Aspartate Amino Transferase 18 U/L (0-40); Blood Urea Nitrogen 6 mg/dL (6-20); Calcium 8.6 mg/dL (8.5-10.5); Carbon Dioxide 27 mmol/L (22-29); Chloride 92 mmol/L (98-107); Globulin 2.8 g/dL (1.3-4.6); Glomerular Filtration Rate 111.3 mL/min (90-130); Glucose 116 mg/dL (65-115); Lipase 20 U/L (13-60); Osmolality Calculated 271 mOsm/kg (285-295); Sodium 131 mmol/L (136-145); Total Bilirubin 0.7 mg/dL (0.15-1.2); Total Protein 6.5 g/dL (6.6-8.7)
[2021-02-09 07:28] LABS: C Reactive Protein 110.8 mg/L (0.0-4.9)
[2021-02-09 07:29] LABS: Partial Thromboplastin Time 31.9 SECONDS (23.9-36.7)
[2021-02-09 07:32] LABS: D Dimer 1.56 ug/mIFEU (0-0.59)
[2021-02-09] MEDS: magnesium sulfate premix 2 GM/50 ML PIGGYBACK IV (07:32)
[2021-02-09] MEDS: sodium chloride 0.9% 1,000 ML 999 ML IV ×2 (07:33→09:38)
[2021-02-09] MEDS: dexamethasone 10 mg/mL INJ 6 MG IVP (07:33)
[2021-02-09] MEDS: acetaminophen 500 mg Tablet 1000 MG PO (07:33)
[2021-02-09] MEDS: metoclopramide 5 mg/mL SDV 2 mL 10 MG IVP (07:34)
[2021-02-09] MEDS: diphenhydrAMINE 50 mg/mL SDV 1mL IVP (07:34)
[2021-02-09 07:36] LABS: SARS Covid-2 Antigen Negative (Negative)
[2021-02-09 08:13] LABS: Fibrinogen 520 mg/dL (174-498)
[2021-02-09] MEDS: azithromycin 250 mg Tablet 500 MG PO (08:15)
--- NOTE | 2021-02-09 08:20 | CT_ITS ---
WS: [id number] CT HEAD NONCONTRAST HISTORY: severe headache not improving with meds TECHNIQUE: Contiguous axial imaging performed through the brain in 2.5 mm imaging. Bone and soft tiss ue windows. Sagittal and coronal reformats reviewed. All CT scans at [facility] use at least one of these dose optimization techniques: automated exposure control; mA and/or kV adjustment per pa tient size (includes targeted exams where dose is matched to clinical indication); or iterative recon struction. DLP: 4618.57 mGy.cm COMPARISON: None available. Study is significantly limited by motion artifact despite multiple attempts. Small areas of hemorrhag e, especially subarachnoid hemorrhage would be obscured. No acute intracranial hemorrhage, midline shift or mass effect. No atrophy or prior infarcts or herniation. Ventricles: Normal size with no hydrocephalus. Paranasal sinuses: Mild mucoperiosteal thickening in the maxillary sinuses. No air-fluid levels. Mastoid air cells: Well pneumatized. Calvarium and scalp: Skull is intact with no soft tissue edema or swelling. CT/CT head wo con* [id number] IMPRESSION: 1. Quality of this examination is limited by motion. 2. Small areas of subarachnoid hemorrhage could be obscured with this amount o f motion. 3. No midline shift or large areas of hemorrhage.
--- NOTE | 2021-02-09 08:23 | PC.PHAR ---
pt states he takes no rx medications-pt states he has only been taking ibuprofen-pt had rxs written on 11/10/2019 for cymbalta 30mg-rx written on 11/13/2019 for lisinopril 20mg daily and metoprolol succinate 50mg daily pt states he is not taking those medications-
--- NOTE | 2021-02-09 08:31 | CT_ITS ---
WS: [id number] CT CHEST ANGIOGRAPHY WITH REFORMATS HISTORY: right heart strain on EKG TECHNIQUE: Contiguous axial images are obtained through the chest during arterial injection of intrav enous contrast. Images are reconstructed to evaluate the pulmonary arteries. MIP imaging also reviewe d. All CT scans at [facility] use at least one of these dose optimization techniques: automat ed exposure control; mA and/or kV adjustment per patient size (includes targeted exams where dose is matched to clinical indication); or iterative reconstruction. CONTRAST: Omnipaque 350; 95 mL IV. DLP: 551.59 mGy.cm COMPARISON: None available. Suboptimal opacification of the pulmonary arteries. Centrally there is no pulmonary embolism. Beyond the lobar branches the opacification is significantly limited secondary to breathing motion artifact. Pulmonary artery size is equal to the aorta. Normal appearance of the thoracic aorta. No RIGHT heart strain. LEFT atrium and ventricle are mildly prominent. No pericardial or pleural effusions. Significant motion artifact throughout both lungs. There are focal areas of patchy opacifications and groundglass opacification. No dense consolidations. No effusion. There are numerous mediastinal and hilar lymph nodes. These lymph nodes are subcentimeter and measure up to 9 mm. The largest at the LEF T hilum. Liver is slightly enlarged. No adrenal mass. CT/CT angio chest PE protcl [id number] IMPRESSION: 1. Study is significantly limited due to breathing motion artifact. 2. No central pulmonary embolism. Beyond the lobar branches the opacification is limited due to phase of injection and motion. 3. Diffuse scattered groundglass opacifications probably due to pneumonitis. 4. No RIGHT heart strain. 5. Mild LEFT heart enlargement. 6. Numerous small mediastinal and hilar lymph nodes are probably reactive.
[2021-02-09 08:33] LABS: Troponin T (5th) Once 43 ng/L (0-15)
[2021-02-09 08:40] LABS: NT Pro B Type Natriuretic Pept 1934 pg/mL (0-125)
[2021-02-09] MEDS: iohexol 350 mg/mL 100 mL Btl IV (09:15)
[2021-02-09] MEDS: cefepime 1,000 MG in sodium chloride 0.9% (plus) 50 ML 100 MG IV (09:38)
[2021-02-09] MEDS: vancomycin 1,000 MG in sodium chloride 0.9% 250 ML 250 MG IV (09:38)
[2021-02-09] MEDS: cefTRIAXone 1,000 MG in sodium chloride 0.9% (plus) 50 ML 100 MG IV (09:38)
[2021-02-09 10:14] LABS: Lactate (Lactic Acid level) 0.8 mmol/L (0.5-2.2)
--- NOTE | 2021-02-09 10:56 | P.HP_ITS ---
Providers/Chief Complaint Chief Complaint: headache, sob History of Present Illness Ramón Otero is a 35 year old male with a past medical history of methamphetamine use, hypertension, and nicotine dependence. He presented to the ED with headache, nonproductive cough, and weakness of one day. Patient appeared encephalopathic and was difficult to keep awake to answer questions during encounter. Chest x-ray revealed pneumonia, he is currently on 3 L nasal cannula. Tox screen is positive for methamphetamine use. Rapid Covid test negative, PCR pending. Patient denies chest pain, dysuria, melena, hematochezia, and hematemesis. History limited secondary to lethargy. Review of Systems General: Reports: 10 or more systems reviewed and unremarkable except in HPI and below Const: Reports: diaphoresis; Denies: fever(s) or chills Eyes: Denies: change in vision ENMT: Denies: throat pain Card: Denies: chest pain Resp: Reports: dyspnea and non-productive cough GI: Denies: abdominal pain, nausea or vomiting : Denies: flank pain Musc: Denies: neck pain Skin/Breast: Denies: rash Neuro: Reports: headache(s); Denies: numbness in extremities Psych: Denies: anxiety Endo: Denies: polyuria Adán/Lymph: Denies: easy bruising All/Imm: Denies: urticaria Medications/Allergies Home Medications Medication Instructions Recorded Confirmed Last Taken Type ibuprofen 400 mg PO Q4H PRN 02/09/21 02/09/21 02/08/21 History Allergies Allergy/AdvReac Type Severity Reaction Status Date / Time No Known Allergies Allergy Verified 02/09/21 08:25 PFSH Acute PFSH: Medical History (Updated 02/09/21 @ 14:29 by Francisco Chapman MD) ADHD, predominantly inattentive type Anxiety Essential hypertension Headache Hypoxemia Knee pain, bilateral Mood disorder in sleep apnea Nicotine dependence, cigarettes, with unspecified nicotine-induced disorders Persistent mood [affective] disorder, unspecified Pneumonia Pneumonia due to 2019-nCoV Post concussion syndrome Renal calculi Right shoulder pain Traumatic brain injury with loss of consciousness Surgical History No pertinent past surgical history Family History Other Hypertension Social History Smoking and tobacco status: current every day smoker cigarettes Packs smoked per day: 0.5 Years cigarettes smoked: 12 Quit status (tobacco): not considering quitting Alcohol intake: never Substance/Drug Use: current 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 Difficult to keep awake during encounter. HEENT pupils reactive, oropharynx clear Neck supple no lymphadenopathy or JVD Respiratory clear without wheezing or crackles. Cardio regular rate and rhythm no murmurs GI soft nontender bowel sounds present deferred Extremities no cyanosis clubbing or edema Skin diaphoretic, no rash Data : 02/09/21 06:25 02/09/21 06:25 Micro: Microbiology 02/09/21 09:35 Blood Culture - Preliminary Blood SPECIMEN COLLECTED 02/09/21 09:35 Blood Culture - Preliminary Blood SPECIMEN COLLECTED Other data: D-dimer 1.56 Troponin 43 CRP 110 BNP 1934 Toxicology positive for amp[address]amines CT shows pneumonia with no PE and mild left heart enlargement Chest x-ray concerning for pneumonia Head CT shows no evidence of hemorrhage ECG normal sinus rhythm with an incomplete right bundle branch block Blood cultures pending, has history of MRSA A&P Assessment and plan (1) Pneumonia: Patient had evidence of pneumonia on CTA. He was hypoxic upon presentation, requiring 4 L of oxygen which has been tapered down to 3 L. Secondary to the current pandemic COVID-19 pneumonia must be ruled out. His rapid is negative and his PCR is pending. He has a history of methamphetamine use, I believe mostly by smoking. He also has a history of MRSA abscess. Secondary to this we will initially treat pneumonia with Rocephin, azithromycin, and vancomycin. However, with methamphetamine inhaled this could give a similar picture to his CTA. He did receive a dose of dexamethasone as well as remdesivir in the emergency department. Secondary to his complex presentation I will hold off on further doses until reevaluation tomorrow, and hopefully at that time his Covid PCR will be reported. Status: Acute (2) Hypoxemia: Oxygen, wean as tolerated Inhaler, as needed Status: Acute (3) Headache: Complaint was present in the emergency department but he reported this was resolved when I saw him. He had no nuchal rigidity. Meningitis not likely. Status: Acute (4) Methamphetamine use: Presentation may all be secondary to methamphetamine use, but cannot rule out COVID-19 pneumonia or other pneumonia/bacteremia at this point. Monitor for any withdrawal Status: Acute (5) Hyponatremia: Saline, recheck BMP in the morning Status: Acute (6) Elevated d-dimer: No evidence of pulmonary embolism Status: Acute (7) Hypokalemia: Supplement Status: Acute (8) Acute encephalopathy: Significantly lethargic in the emergency department. However, I have interviewed him again this afternoon and this seems to be clearing. He again complains of no headache or neck pain currently. He reports he would like his phone to be able to call his friend. He is alert and oriented x3, and appears to understand his current treatment plan and situation. I believe his acute encephalopathy is secondary to either hypoxemia or methamphetamine use. Status: Acute (9) Essential hypertension: It does not appear that he is on any chronic medication. Hydralazine as needed Monitor for withdrawal Consider daily medication if hypertension persists Status: Chronic Attestations Medical Necessity Statement*: Will need greater than 2 midnight stay for treatment of pneumonia Time Spent in Patient Care: Greater than 35 minutes Coding Level of Care Code Acute Pharmacy Retail Support Specialist for [facility] Fwd Diagnoses Pneumonia J18.9 Hypoxemia R09.02 Headache R51.9 Methamphetamine use F15.10 Hyponatremia E87.1 Elevated d-dimer R79.89 Hypokalemia E87.6 Acute encephalopathy G93.40 Essential hypertension I10
[2021-02-09 11:29] LABS: Magnesium 1.8 mg/dL (1.7-2.3); Thyroid Stimulating Hormone 0.41 uIU/mL (0.27-4.20)
[2021-02-09 11:32] LABS: Acetaminophen < 5.0 ug/mL (10-30); Alcohol Level < 10 mg/dL (0-10); Salicylate < 0.3 mg/dL (3-10)
[2021-02-09 11:39] LABS: Bilirubin Urine Neg (Negative); Blood Urine Neg (Negative); Glucose Urine UA Norm (Normal); Ketones Urine Negative (Negative); Leukocyte Esterase Urine Negative (Negative); Nitrate Urine Negative (Negative); Protein Urine Neg (Negative); Specific Gravity, Urine 1.005 (1.005-1.030); Urine Appearance Clear (CLEAR); Urine Color Straw (Yellow); Urobilinogen Urine Norm (Negative); pH Urine 7 (5-7)
[2021-02-09 11:45] LABS: Add Urine Culture? No; Bacteria Urine TRACE /hpf; RBC Urine 0-4 /hpf (0-2); Squamous Epithelial Cell Urine 0-4 /hpf (0-5); WBC Urine 0-4 /hpf (0-5)
[2021-02-09 11:46] LABS: Amphetamines Screen Urine Positive (Negative); Barbiturates Screen Urine Negative (Negative); Benzodiazepines Screen Urine Negative (Negative); Cocaine Screen Urine Negative (Negative); Opiate Screen Urine Negative (Negative); PCP Screen Urine Negative (Negative); THC Screen Urine Negative (Negative)
[2021-02-09] MEDS: lidocaine 1% 5 ML in potassium chloride premix 100 ML 25 ML IV (11:46)
[2021-02-09] MEDS: hyDRALAzine 20 mg/mL INJ 1 mL 10 MG IVP (15:27)
[2021-02-09] MEDS: sodium chloride 0.9% 1,000 ML 75 ML IV (15:31)
[2021-02-09] MEDS: enoxaparin 40 mg/0.4 mL Syringe SUBCUT (15:33)
[2021-02-09] MEDS: vancomycin 1,500 MG/300 ML PIGGYBACK 200 MG IV (20:05)
[2021-02-09] MEDS: acetaminophen 325 mg Tablet 650 MG PO (20:17)
[2021-02-10] VITALS (13 sets, daily range): BP systolic 124–172; BP diastolic 71–109; PULSE 64–129; RESP 16–86; TEMP 36.6–36.9; O2SAT 90–98
[2021-02-10] MEDS: hyDRALAzine 20 mg/mL INJ 1 mL 10 MG IVP ×2 (01:46→17:08)
--- NOTE | 2021-02-10 02:02 | CTR_ITS ---
PROCEDURE INFORMATION: Exam: CT Head Without Contrast Exam date and time: 02/10/2021 2:02 AM Age: 35 years old Clinical indication: Pain; Patient HX: Persistent severe headache. Somewhat disoriented. Patient non compliant to directions. Best exam obtained. ; Additional info: Headache, prior CT scan with reported subarachnoid hemorage TECHNIQUE: Imaging protocol: Computed tomography of the head without contrast. Radiation optimization: All CT scans at this facility use at least one of these dose optimization techniques: automated exposure control; mA and/or kV adjustment per patient size (includes targeted exams where dose is matched to clinical indication); or iterative reconstruction. COMPARISON: CT head wo con* [id number] 02/09/2021 8:50 AM RADIATION DOSE METRICS: Total DLP (mGy-cm): 1597.42 FINDINGS: Brain: No acute intracranial hemorrhage or mass effect. No definite acute infarct by CT. MRI could be more sensitive/specific for detection, as clinically directed. Cerebral ventricles: Ventricle size is normal for age. Paranasal sinuses: Small amount of fluid/opacity in the left maxillary sinus, similar to the prior exam. Included paranasal sinuses otherwise appear essentially clear. Mastoid air cells: No significant acute finding. Bones/joints: No definite acute skull fracture. CT/CT head wo con* [id number] IMPRESSION: 1. No acute intracranial hemorrhage or mass effect. 2. No definite acute infarct by CT, see above. 3. Other findings discussed above. Radiation Dose CTDIVOL = (mGy): DLP = 1597.42 (mGy-cm)
[2021-02-10] MEDS: acetaminophen 325 mg Tablet 650 MG PO ×2 (02:10→18:27)
[2021-02-10] MEDS: LORazepam 2 mg/mL INJ 1 mL 1 MG IVP (02:14)
[2021-02-10] MEDS: ondansetron 2 mg/ML SDV 2 mL 4 MG IVP ×2 (02:53→17:09)
[2021-02-10] MEDS: vancomycin 1,500 MG/300 ML PIGGYBACK 200 MG IV ×3 (03:26→18:24)
[2021-02-10] MEDS: sodium chloride 0.9% 1,000 ML 75 ML IV (04:51)
[2021-02-10 05:41] LABS: Basophils % 0.2 %; Hematocrit 44.7 % (42.0-52.0); Lymphocytes # 0.7 10^3/uL (0.8-4.8); Lymphocytes % 3.6 %; Mean Corpuscular HGB Conc 33.6 g/dL (30.0-36.0); Mean Corpuscular Hemoglobin 27.8 pg (28.0-34.0); Mean Corpuscular Volume 82.8 fl (80-94); Mean Platelet Volume 9.8 fL (7.4-10.4); Monocytes # 1.9 10^3/uL (0.2-0.9); Monocytes % 10.3 %; Neutrophils # 15.81 10^3/uL (1.8-7.7); Neutrophils % 85.1 %; Nucleated Red Blood Cells % 0 %; Platelet Count 218 10^3/cmm (130-400); Red Cell Distribution Width 13.3 % (12.1-15.1); White Blood Count 18.6 10^3/uL (4.0-10.0)
[2021-02-10 06:00] LABS: Alanine Aminotransferase 14 U/L (0-41); Albumin Level 3.2 g/dL (3.5-5.2); Alkaline Phosphatase 66 IU/L (40-130); Anion Gap 15.1 (5-19); Aspartate Amino Transferase 17 U/L (0-40); Blood Urea Nitrogen 11 mg/dL (6-20); Carbon Dioxide 25 mmol/L (22-29); Chloride 98 mmol/L (98-107); Globulin 2.7 g/dL (1.3-4.6); Glomerular Filtration Rate 155.2 mL/min (90-130); Glucose 106 mg/dL (65-115); Osmolality Calculated 280 mOsm/kg (285-295); Potassium 3.1 mmol/L (3.5-5.1); Sodium 135 mmol/L (136-145); Total Bilirubin 0.6 mg/dL (0.15-1.2); Total Protein 5.9 g/dL (6.6-8.7)
--- NOTE | 2021-02-10 08:10 | P.PN_ITS ---
Documented by User: SEEMA Thomson STDNT 02/10/21 11:35 Subjective Subjective: Interval history: Reports he didn't get much sleep last night due to right sided headache. He does have a hx of headaches and usually takes tylenol for relief, this headache is mildly worse than usual. He vomited once overnight, denies blood in vomit. Denies shortness of breath or chest pain. Medications: Reviewed: Yes Vitals/I&O/Wt Last Vital Signs Temp 98.3 F 02/10/21 07:56 Pulse 83 02/10/21 07:56 Resp 86 H 02/10/21 07:56 BP 159/71 02/10/21 07:56 Pulse Ox 90 02/10/21 07:56 02/09/21 02/10/21 02/10/21 22:59 06:59 14:59 Intake Total 1005 / 3405 1300 / 4705 Output Total 1050 / 1050 200 / 1250 Balance -45 / 2355 1100 / 3455 Weight last 48 hrs Weight 86.183 kg Weight 75.75 kg Physical Exam Narrative: EXAM NARRATIVE: General white male appears in mild distress due to headache HEENT pupils reactive oropharynx clear Neck supple no lymphadenopathy or JVD Respiratory crackles heard bilaterally Cardio regular rate and rhythm no murmurs GI soft, non tender, positive bowel sounds all quadrants. Ext no cyanosis, clubbing, or edema skin no rash Data : 02/10/21 04:54 02/10/21 04:54 Micro: Microbiology 02/09/21 09:35 Blood Culture - Preliminary Blood SPECIMEN COLLECTED 02/09/21 09:35 Blood Culture - Preliminary Blood SPECIMEN COLLECTED Other data: Head CT no acute intracranial hemorrhage or mass effect. Covid PCR pending Blood cultures negative to date A&P Assessment and plan (1) Pneumonia: Patient had evidence of pneumonia on CTA. Currently requiring 5 L of oxygen Continue Rocephin, azithromycin, and vancomycin. Will order MRSA PCR, has previous history of MRSA abscess. COVID rapid is negative and PCR is still pending. He has a history of inhaled methamphetamine use. This could give a similar pictu re to his CTA. Status: Acute (2) Hypoxemia: wean as tolerated Inhaler, as needed Status: Acute (3) Headache: Complains of R sided headache. Will give ibuprofen 600mg po once. Has no nuchal rigidity. Meningitis not likely. Status: Acute (4) Methamphetamine use: Monitor for any withdrawal Presentation may all be secondary to methamphetamine use, but cannot rule out COVID-19 pneumonia or other pneumonia/bacteremia at this point. Status: Acute (5) Hyponatremia: Resolved Status: Acute (6) Elevated d-dimer: No evidence of pulmonary embolism Status: Acute (7) Hypokalemia: Supplement Status: Acute (8) Acute encephalopathy: He is alert and oriented x3, and appears to understand his current treatme nt plan and situation. I believe his acute encephalopathy is secondary to either hypoxemia or metham phetamine use. Status: Acute (9) Essential hypertension: Hydralazine as needed Monitor for withdrawal Consider daily medication if hypertension persists Status: Chronic Coding Level of Care Code Acute Auto Adjudication Specialist for g Fwd Diagnoses Pneumonia J18.9 Hypoxemia R09.02 Headache R51.9 Methamphetamine use F15.10 Hyponatremia E87.1 Elevated d-dimer R79.89 Hypokalemia E87.6 Acute encephalopathy G93.40 Essential hypertension I10 Documented by User: Francisco Chapman MD 02/10/21 12:23 Subjective Subjective: Interval history: Agree with above. Patient reports he has a mild to moderate headache currently. States he can get these chronically at home as well for which she would take Tylenol or ibuprofen. Medications: Reviewed: Yes Physical Exam Narrative: EXAM NARRATIVE: Agree with above. Note the patient is still receiving oxygen. Data : 02/10/21 04:54 02/10/21 04:54 A&P Additional A&P Information Agree with above. For his pneumonia we will continue vancomycin, Rocephin and azithromycin. Await cultures. Blood cultures have been sent and we will see if we can get a sputum culture today. Await MRSA PCR. He received remdesivir and dexamethasone thinking this might be Covid yesterday. This testing should be available this afternoon and if he is in fact Covid positive we will continue remdesivir and dexamethasone. Will wean oxygen as possible. Pulmonary toilet. For his headache no nuchal rigidity is present today. Meningitis not thought to be likely. This could be secondary to withdrawal. Ativan as needed will be ordered as well. Methamphetamine use. He denies any IV use but does have history of MRSA abscess in the past. I do not think that we could particularly rule out endocarditis at this time or even drug-induced cardiomyopathy. As BNP elevated on admission will check echocardiogram. Supplement potassium, recheck in the morning Full code Lovenox for DVT prophylaxis Attestations Medical Necessity Statement*: Needs continued hospitalization secondary to pneumonia with hypoxemia Coding Level of Care Code Acute Auto Adjudication Specialist for [facility] Fwd Diagnoses Pneumonia J18.9 Hypoxemia R09.02 Headache R51.9 Methamphetamine use F15.10 Hyponatremia E87.1 Elevated d-dimer R79.89 Hypokalemia E87.6 Acute encephalopathy G93.40 Essential hypertension I10
[2021-02-10] MEDS: cefTRIAXone 1,000 MG in sodium chloride 0.9% (plus) 50 ML 100 MG IV ×2 (10:32→20:25)
[2021-02-10] MEDS: azithromycin 500 MG in sodium chloride 0.9% 250 ML 250 MG IV (10:32)
[2021-02-10] MEDS: potassium chloride ER 20 mEq Tablet 40 MEQ PO ×2 (10:38→12:47)
[2021-02-10] MEDS: ibuprofen 600 mg Tablet PO (10:38)
[2021-02-10] MEDS: thiamine 100 mg Tablet PO (12:47)
--- NOTE | 2021-02-10 15:22 | PC.CHAP ---
Pastoral Care Encounter/Spiritual Assessment Type of Contact [] Declined collection specialist visit [] Patient/Family/Request visit [] Outpatient visit [] Follow-up visit [] Physician referral [] Code/Alert [] Routine visit [] Staff referral [] Actively dying [] Patient sleeping [] Family support [] [] Out of room [] Palliative care [] [] Receiving care in room [] Pre-surgical visit [] Trauma [] Long length of stay [] ICU visit [xx] Other: ISOLATION Relational/Emotional Strength [] Patient feels connected with others/family/visitors/staff [] Distress [] Loneliness/isolation [] Abandonment Spirituality of Patient [] Person of Emma [] Attends Restorationism of their Emma [] Believes in Prayer [] Reads Bible or Religion materials [] There are Spiritual issues to be addressed 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 [] Prayer [] Active listening [] Non-anxious presence [] Spiritual/emotional support [] Crisis/trauma care [] Spiritual counseling [] Bereavement support [] Provided bereavement packet [] Provided Bible/devotional materials [] Provided toy/stuffed animal, coloring book to patient or family member [] Provided Communion [] Anointing/[place] [] Salvation [] Completed spiritual assessment [] Other: Impact on Illness or Injury [] Angry [] Fearful [] Anxious [] Often cries [] Exhaustion [] Unable to work [] Unable to attend nondenominational [] Unable to walk/stand [] Unable to read [] Unable to drive [] Unable to eat/drink [] Unable to sleep [] Unable to be with family [] Patient intubated [] Other: Summary Time spent with patient
[2021-02-10 16:35] LABS: Procalcitonin 0.26 ng/mL (0-0.5)
[2021-02-10 16:37] LABS: Coronavirus Test Green County Not Detected
[2021-02-10 16:39] LABS: Hepatitis A Antibody IgM Non-Reactive (Nonreactive); Hepatitis B Core IgM Non-Reactive (Nonreactive); Hepatitis B Surface Antigen Non-Reactive (Nonreactive); Hepatitis C Virus Antibody Non-Reactive (Nonreactive)
[2021-02-10] MEDS: enoxaparin 40 mg/0.4 mL Syringe SUBCUT (17:09)
[2021-02-10] MEDS: LORazepam 2 mg/mL INJ 1 mL 0.5 MG IVP (18:22)
[2021-02-11] VITALS (11 sets, daily range): BP systolic 135–174; BP diastolic 81–115; PULSE 81–120; RESP 18–30; TEMP 36.3–37.1; O2SAT 90–97
[2021-02-11 00:40] LABS: HIV 1 & 2 Antibody Non-Reactive (Non-Reactiv); HIV 1 & 2 Antigen Non-Reactive (Non-Reactiv)
[2021-02-11] MEDS: acetaminophen 325 mg Tablet 650 MG PO ×4 (01:06→23:52)
[2021-02-11] MEDS: vancomycin 1,500 MG/300 ML PIGGYBACK 200 MG IV ×3 (03:29→20:09)
[2021-02-11 07:17] LABS: Basophils % 0.2 %; Eosinophils % 0.2 %; Hematocrit 44.5 % (42.0-52.0); Lymphocytes % 8.3 %; Mean Corpuscular HGB Conc 33.7 g/dL (30.0-36.0); Mean Platelet Volume 9.7 fL (7.4-10.4); Monocytes # 1.5 10^3/uL (0.2-0.9); Monocytes % 12.5 %; Neutrophils # 9.47 10^3/uL (1.8-7.7); Neutrophils % 78.1 %; Nucleated Red Blood Cells % 0 %; Platelet Count 250 10^3/cmm (130-400); Red Blood Count 5.36 10^6/uL (4.1-5.3); Red Cell Distribution Width 13.5 % (12.1-15.1); White Blood Count 12.1 10^3/uL (4.0-10.0)
[2021-02-11 07:48] LABS: Alanine Aminotransferase 13 U/L (0-41); Albumin Level 3.1 g/dL (3.5-5.2); Alkaline Phosphatase 66 IU/L (40-130); Anion Gap 15.3 (5-19); Aspartate Amino Transferase 14 U/L (0-40); Blood Urea Nitrogen 8 mg/dL (6-20); Calcium 8.4 mg/dL (8.5-10.5); Carbon Dioxide 24 mmol/L (22-29); Chloride 96 mmol/L (98-107); Glomerular Filtration Rate 155.2 mL/min (90-130); Glucose 90 mg/dL (65-115); Magnesium 1.8 mg/dL (1.7-2.3); Osmolality Calculated 272 mOsm/kg (285-295); Potassium 3.3 mmol/L (3.5-5.1); Sodium 132 mmol/L (136-145); Total Bilirubin 0.9 mg/dL (0.15-1.2); Total Protein 6.1 g/dL (6.6-8.7)
[2021-02-11] MEDS: cefTRIAXone 1,000 MG in sodium chloride 0.9% (plus) 50 ML 100 MG IV ×2 (09:18→20:40)
[2021-02-11] MEDS: thiamine 100 mg Tablet PO (09:19)
[2021-02-11] MEDS: LORazepam 2 mg/mL INJ 1 mL 0.5 MG IVP (09:19)
[2021-02-11] MEDS: azithromycin 500 MG in sodium chloride 0.9% 250 ML 250 MG IV (11:51)
[2021-02-11] MEDS: nicotine 21 mg Patch 1 PATCH TRANSDERMA (12:13)
--- NOTE | 2021-02-11 15:02 | PM.PN ---
Subjective Subjective: Interval history: 35 year old male with a past medical history of methamphetamine use, hypertension, and nicotine dependence. He presented to the ED with headache, nonproductive cough, and weakness of one day. Patient appeared encephalopathic and was difficult to keep awake to answer questions during encounter. Chest x-ray revealed pneumonia, he is currently on 3 L nasal cannula. Tox screen is positive for methamphetamine use. Rapid Covid test negative, PCR pending. Patient denies chest pain, dysuria, melena, hematochezia, and hematemesis. History limited secondary to lethargy. Patient has been requiring supplemental oxygen. Weaned to 3L. Continued to complain of headache. Medications: Reviewed: Yes Vitals/I&O/Wt Last Vital Signs Temp 98.5 F 02/11/21 11:41 Pulse 85 02/11/21 11:41 Resp 28 H 02/11/21 11:41 BP 135/81 02/11/21 11:41 Pulse Ox 90 02/11/21 11:41 02/11/21 02/11/21 02/11/21 06:59 14:59 22:59 Intake Total 300 / 2250 840 / 840 Output Total 1075 / 3100 450 / 450 Balance -775 / -850 390 / 390 Physical Exam Narrative: EXAM NARRATIVE: General:white male requiring 3 L oxygen. c/o headache HEENT pupils reactive, oropharynx clear Neck supple no lymphadenopathy or JVD Respiratory clear without wheezing or crackles. Cardio regular rate and rhythm no murmurs GI soft nontender bowel sounds present deferred Extremities no cyanosis clubbing or edema Skin diaphoretic, no rash Data : 02/11/21 06:52 02/11/21 06:52 Micro: Microbiology 02/10/21 18:40 MRSA Culture - Final Nose A&P Assessment and plan (1) Pneumonia: Patient had evidence of pneumonia on CTA. COVI19 PCR - negative F/u on culture Unclear if vaping Leukocytosis improving Repeat labs including procal in am Status: Acute (2) Hypoxemia: Oxygen, wean as tolerated Inhaler, as needed Status: Acute (3) Headache: Complaint was present in the emergency department but he reported this was resolved when I saw him. He had no nuchal rigidity. Meningitis not likely. Status: Acute (4) Methamphetamine use: Presentation may all be secondary to methamphetamine use, but cannot rule out COVID-19 pneumonia or other pneumonia/bacteremia at this point. Monitor for any withdrawal Status: Acute (5) Hyponatremia: Saline, recheck BMP in the morning Status: Acute (6) Elevated d-dimer: No evidence of pulmonary embolism Status: Acute (7) Hypokalemia: Supplement Status: Acute (8) Acute encephalopathy: Back to basline Status: Acute (9) Essential hypertension: It does not appear that he is on any chronic medication. Hydralazine as needed Monitor for withdrawal Consider daily medication if hypertension persists Status: Chronic Additional A&P Information Full code Lovenox for DVT prophylaxis Attestations Medical Necessity Statement*: Require further hospitalization for management of pneumonia requiring IV antibiotics and supplemental oxygen Time Spent in Patient Care: Greater than 35 minutes (>than 50% of time spent in counselling and/or direct pt care on unit). Coding Level of Care Code Acute Computer Assembler for g Fwd Diagnoses Pneumonia J18.9 Hypoxemia R09.02 Headache R51.9 Methamphetamine use F15.10 Hyponatremia E87.1 Elevated d-dimer R79.89 Hypokalemia E87.6 Acute encephalopathy G93.40 Essential hypertension I10
[2021-02-11] MEDS: enoxaparin 40 mg/0.4 mL Syringe SUBCUT (16:23)
[2021-02-11] MEDS: potassium chloride ER 20 mEq Tablet PO (16:23)
--- NOTE | 2021-02-11 21:11 | PC.NURSE ---
i reported high pulse 109 to nurse
[2021-02-12] VITALS (11 sets, daily range): BP systolic 134–179; BP diastolic 88–118; PULSE 70–112; RESP 17–20; TEMP 36.4–37.2; O2SAT 93–99
--- NOTE | 2021-02-12 00:31 | PC.NURSE ---
i reported high pulse 103 to nurse
[2021-02-12] MEDS: vancomycin 1,500 MG/300 ML PIGGYBACK 200 MG IV ×3 (03:19→20:07)
--- NOTE | 2021-02-12 04:33 | PC.NURSE ---
i reported high pulse 106 to nurse
[2021-02-12 08:01] LABS: Basophils % 0.5 %; Eosinophils # 0.1 10^3/uL (0.0-0.8); Eosinophils % 1.5 %; Hematocrit 45.4 % (42.0-52.0); Hemoglobin 15.4 g/dL (11.7-16.6); Lymphocytes # 1.3 10^3/uL (0.8-4.8); Lymphocytes % 15.3 %; Mean Corpuscular HGB Conc 33.9 g/dL (30.0-36.0); Mean Corpuscular Hemoglobin 27.5 pg (28.0-34.0); Mean Corpuscular Volume 81.1 fl (80-94); Mean Platelet Volume 9.9 fL (7.4-10.4); Monocytes # 1.2 10^3/uL (0.2-0.9); Monocytes % 14.7 %; Neutrophils # 5.41 10^3/uL (1.8-7.7); Neutrophils % 66.4 %; Nucleated Red Blood Cells % 0 %; Platelet Count 279 10^3/cmm (130-400); Red Cell Distribution Width 13.2 % (12.1-15.1); White Blood Count 8.2 10^3/uL (4.0-10.0)
[2021-02-12] MEDS: thiamine 100 mg Tablet PO (08:17)
[2021-02-12] MEDS: nicotine 21 mg Patch 1 PATCH TRANSDERMA (08:19)
--- NOTE | 2021-02-12 08:24 | PC.NURSE ---
700 cc clear yellow urine drained from urinal
[2021-02-12 08:26] LABS: Alanine Aminotransferase 28 U/L (0-41); Albumin Level 3.1 g/dL (3.5-5.2); Alkaline Phosphatase 59 IU/L (40-130); Anion Gap 13.4 (5-19); Aspartate Amino Transferase 34 U/L (0-40); Blood Urea Nitrogen 8 mg/dL (6-20); Calcium 8.3 mg/dL (8.5-10.5); Carbon Dioxide 24 mmol/L (22-29); Chloride 101 mmol/L (98-107); Globulin 2.8 g/dL (1.3-4.6); Glomerular Filtration Rate 191.5 mL/min (90-130); Glucose 86 mg/dL (65-115); Osmolality Calculated 278 mOsm/kg (285-295); Potassium 3.4 mmol/L (3.5-5.1); Sodium 135 mmol/L (136-145); Total Bilirubin 0.6 mg/dL (0.15-1.2); Total Protein 5.9 g/dL (6.6-8.7)
--- NOTE | 2021-02-12 08:39 | PC.SOCIAL ---
IMM Update Pg. 2 of IMM updated and reviewed with patient over the phone. Copy provided.
[2021-02-12] MEDS: hyDRALAzine 20 mg/mL INJ 1 mL 10 MG IVP ×2 (08:47→13:28)
[2021-02-12] MEDS: cefTRIAXone 1,000 MG in sodium chloride 0.9% (plus) 50 ML 100 MG IV ×2 (09:02→21:42)
[2021-02-12] MEDS: amlodipine 10 mg Tablet PO (10:43)
[2021-02-12] MEDS: azithromycin 500 MG in sodium chloride 0.9% 250 ML 250 MG IV (13:34)
--- NOTE | 2021-02-12 14:06 | P.PN_ITS ---
Subjective Subjective: Interval history: 35 year old male with a past medical history of methamphetamine use, hypertension, and nicotine dependence. He presented to the ED with headache, nonproductive cough, and weakness of one day. Patient appeared encephalopathic and was difficult to keep awake to answer questions during encounter. Chest x-ray revealed pneumonia, he is currently on 3 L nasal cannula. Tox screen is positive for methamphetamine use. Rapid Covid test negative, PCR pending. Patient denies chest pain, dysuria, melena, hematochezia, and hematemesis. . 02/12/2021 Patient has been requiring supplemental oxygen. Weaned to 3L. Continued to complain of headache. patient has been very hypertensive. Improved after he was initiated on hydralazine. Again complaining of intractable migraine. No neurological deficits. Afebrile. Medications: Reviewed: Yes Vitals/I&O/Wt Last Vital Signs Temp 98.9 F 02/12/21 20:00 Pulse 70 02/12/21 20:00 Resp 18 02/12/21 20:00 BP 134/90 02/12/21 20:00 Pulse Ox 97 02/12/21 20:00 02/12/21 02/12/21 02/13/21 14:59 22:59 06:59 Intake Total 1310 / 1310 1140 / 2450 Output Total 1325 / 1325 2025 / 3350 Balance -15 / -15 -885 / -900 Physical Exam Narrative: EXAM NARRATIVE: General:white male requiring 3 L oxygen. c/o h eadache HEENT pupils reactive, oropharynx clear Neck supple no lymphadenopathy or JVD Respiratory clear without wheezing or crackles. Cardio regular rate and rhythm no murmurs GI soft nontender bowel sounds present deferred Extremities no cyanosis clubbing or edema Skin diaphoretic, no rash Data : 02/12/21 07:25 02/12/21 07:25 A&P Assessment and plan (1) Pneumonia: Patient had evidence of pneumonia on CTA. COVID-19 PCR - negative F/u on culture - No growth Unclear if vaping Leukocytosis resolved Status: Acute (2) Hypoxemia: Oxygen, wean as tolerated Inhaler, as needed On 3L - Home o2 eval prior to discharge. Status: Acute (3) Headache: Again noted migraine today Improves with BP improvement per patient Will Order MRI Brain w/wo contrast Head CT w/o contrast negative May need to consider LP Possible Aseptic / atypical meningtits vs PRES syndrome Status: Acute (4) Methamphetamine use: Monitor for any withdrawal Status: Acute (5) Hyponatremia: Saline, recheck BMP in the morning Status: Acute (6) Elevated d-dimer: No evidence of pulmonary embolism Status: Acute (7) Hypokalemia: Supplement Status: Acute (8) Acute encephalopathy: Back to basline Status: Acute (9) Essential hypertension: It does not appear that he is on any chronic medication. Hydralazine 25 mg PO q8hr ordered May have to decrease dose Status: Chronic Additional A&P Information Full code Lovenox for DVT prophylaxis Attestations Medical Necessity Statement*: Continue hospitalization for management of Hypertensive,Pneumonia and migraine Time Spent in Patient Care: Greater than 35 minutes (>than 50% of time spent in counselling and/or direct pt care on unit) . 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
[2021-02-12] MEDS: enoxaparin 40 mg/0.4 mL Syringe SUBCUT (16:17)
[2021-02-12] MEDS: hyDRALAzine 25 mg Tablet PO ×2 (16:20→20:07)
--- NOTE | 2021-02-12 17:07 | PC.CHAP ---
Pastoral Care Encounter/Spiritual Assessment Type of Contact [] Declined floorhand visit [] Patient/Family/Request visit [] Outpatient visit [XX] Follow-up visit [] Physician referral [] Code/Alert [] Routine visit [] Staff referral [] Actively dying [XX] Patient sleeping [] Family support [] [] Out of room [] Palliative care [] [] Receiving care in room [] Pre-surgical visit [] Trauma [] Long length of stay [] ICU visit [] Other: Relational/Emotional Strength [] Patient feels connected with others/family/visitors/staff [] Distress [] Loneliness/isolation [] Abandonment Spirituality of Patient [] Person of Emma [] Attends Orthodox of their Emma [] Believes in Prayer [] Reads Bible or Yazidi materials [] There are Spiritual issues to be addressed Intermodal Dispatcher Interventions [] Prayer [] Active listening [] Non-anxious presence [] Spiritual/emotional support [] Crisis/trauma care [] Spiritual counseling [] Bereavement support [] Provided bereavement packet [] Provided Bible/devotional materials [] Provided toy/stuffed animal, coloring book to patient or family member [] Provided Communion [] Anointing/Ruso [] Salvation [] Completed spiritual assessment [] Other: Impact on Illness or Injury [] Angry [] Fearful [] Anxious [] Often cries [] Exhaustion [] Unable to work [] Unable to attend mandaen [] Unable to walk/stand [] Unable to read [] Unable to drive [] Unable to eat/drink [] Unable to sleep [] Unable to be with family [] Patient intubated [] Other: Summary Time spent with patient
[2021-02-12] MEDS: acetaminophen 325 mg Tablet 650 MG PO ×2 (17:23→23:41)
[2021-02-12 19:29] LABS: Vancomycin Trough 11.2 ug/mL (10-15)
[2021-02-13] VITALS: BP 132/88; PULSE 71; RESP 18; TEMP 37.1; O2SAT 96
[2021-02-13 00:17] VITALS: PULSE 92; RESP 18; O2SAT 96
[2021-02-13] MEDS: vancomycin 1,500 MG/300 ML PIGGYBACK 200 MG IV (03:13)
[2021-02-13 04:00] VITALS: BP 150/99; PULSE 72; RESP 18; TEMP 37.1; O2SAT 96
[2021-02-13] MEDS: acetaminophen 325 mg Tablet 650 MG PO (06:29)
[2021-02-13 07:28] VITALS: BP 159/90; PULSE 91; RESP 20; TEMP 37.2; O2SAT 100
[2021-02-13 08:10] LABS: Basophils # 0.1 10^3/uL (0.0-0.1); Basophils % 0.5 %; Eosinophils # 0.3 10^3/uL (0.0-0.8); Eosinophils % 2.4 %; Hematocrit 47.7 % (42.0-52.0); Lymphocytes # 1.7 10^3/uL (0.8-4.8); Lymphocytes % 16.6 %; Mean Corpuscular HGB Conc 33.5 g/dL (30.0-36.0); Mean Corpuscular Hemoglobin 27.7 pg (28.0-34.0); Mean Corpuscular Volume 82.7 fl (80-94); Mean Platelet Volume 9.4 fL (7.4-10.4); Monocytes # 1.1 10^3/uL (0.2-0.9); Monocytes % 10.9 %; Neutrophils # 6.97 10^3/uL (1.8-7.7); Neutrophils % 67.5 %; Nucleated Red Blood Cells % 0 %; Platelet Count 369 10^3/cmm (130-400); Red Blood Count 5.77 10^6/uL (4.1-5.3); Red Cell Distribution Width 13.5 % (12.1-15.1); White Blood Count 10.3 10^3/uL (4.0-10.0)
[2021-02-13 08:21] LABS: Alanine Aminotransferase 88 U/L (0-41); Albumin Level 3.3 g/dL (3.5-5.2); Alkaline Phosphatase 60 IU/L (40-130); Anion Gap 13.9 (5-19); Aspartate Amino Transferase 84 U/L (0-40); Blood Urea Nitrogen 9 mg/dL (6-20); Calcium 8.5 mg/dL (8.5-10.5); Carbon Dioxide 25 mmol/L (22-29); Chloride 102 mmol/L (98-107); Glomerular Filtration Rate 191.5 mL/min (90-130); Glucose 93 mg/dL (65-115); Osmolality Calculated 284 mOsm/kg (285-295); Sodium 138 mmol/L (136-145); Total Bilirubin 0.5 mg/dL (0.15-1.2); Total Protein 6.3 g/dL (6.6-8.7)
[2021-02-13 08:25] LABS: Potassium 2.9 mmol/L (3.5-5.1)
[2021-02-13 08:29] VITALS: PULSE 98; RESP 20; O2SAT 98
[2021-02-13] MEDS: nicotine 21 mg Patch 1 PATCH TRANSDERMA (08:51)
[2021-02-13] MEDS: hyDRALAzine 25 mg Tablet PO (08:51)
[2021-02-13] MEDS: thiamine 100 mg Tablet PO (08:51)
[2021-02-13] MEDS: cefTRIAXone 1,000 MG in sodium chloride 0.9% (plus) 50 ML 100 MG IV (08:55)
[2021-02-13 10:25] VITALS: BP 120/76; PULSE 98; RESP 18; TEMP 36.7; O2SAT 98
--- NOTE | 2021-02-13 10:25 | PC.NURSE ---
10:15- Answered call light and Patient up in his room walking around. Patient states, I need to go home because I do not have a negative restorer and my kids are home alone and they will call family services on me. Encouraged patient to stay and informed him that his potassium was really low and he should stay and get some IV potassium. Dr. Rojas sent a message that patient was wanting to leave at this time. 10:25 Patient states, I am leaving now my ride is here! IV removed intact. Patient is A&Ox3. Respirations even and non-labored on room air. Encouraged patient to stay again because of his potassium. Patient states, I will just take some oral over the counter potassium. Patient ambulated to private car without difficulty.
--- NOTE | 2021-02-13 13:10 | PM.DCS ---
Discharge Providers Date of Admission: 02/09/21 09:56 Date of Discharge: February 13, 2021 Attending Provider at Admission: Francisco Chapman MD Attending Provider at Discharge: Jarrod Rojas MD Diagnoses at Discharge Discharge Diagnosis (1) Pneumonia: Status: Acute (2) Hypoxemia: Status: Acute (3) Headache: Status: Acute (4) Methamphetamine use: Status: Acute (5) Hyponatremia: Status: Acute (6) Elevated d-dimer: Status: Acute (7) Hypokalemia: Status: Acute (8) Acute encephalopathy: Status: Acute (9) Essential hypertension: Status: Chronic Reason for Visit Reason for Visit: headache, sob Hospital Course Hospital Course Ramón Otero is a 35 year old male with a past medical history of methamphetamine use, hypertension, and nicotine dependence. He presented to the ED with headache, nonproductive cough, and weakness of one day. Patient appeared encephalopathic and was difficult to keep awake to answer questions during encounter. Chest x-ray revealed pneumonia, he is currently on 3 L nasal cannula. Tox screen is positive for methamphetamine use. Rapid Covid test negative, PCR pending. Patient denies chest pain, dysuria, melena, hematochezia, and hematemesis. History limited secondary to lethargy. Patient was admitted for further management of hypoxia, multiple electrolyte normalities and Encephalopathy most likely secondary to methamphetamine use on admission. He was found to be hyponatremic on admission which was replaced. Patient continued to complain of on and off headache. For hypoxia pneumonia was ruled out with CTA, negative COVID-19 PCR with cultures being negative. Leukocytosis has resolved as well. Most likely mild COPD exacerbation. He was weaned down to 3 L. He continued to have on and off headaches which could be because of migraine but he was also found to have elevated blood pressures for which atypical meningitis versus press syndrome were entertained. Patient was due to have an MRI. Because of all of the above and uncontrolled blood pressures patient was advised to stay for 1 more day for further evaluation and management but patient was adamant about leaving and eventually left AGAINST MEDICAL ADVICE on February 13. Physical Exam Narrative: EXAM NARRATIVE: Left AGAINST MEDICAL ADVICE before being examined. Discharge Data Data Completed and Pending: Completed Studies During Hospitalization Category Date Time Status CT angio chest PE protcl [id number] Urge nt Cat Scan 02/09/21 08:[address] head wo con* 7 1504 Stat Cat Scan 02/10/21 02:[address] head wo con* 7 0450 Urgent Cat Scan 02/09/21 08:20 Completed XR chest 1V carola ble [id number] Stat Exams 02/09/21 06:20 Completed Pending at discharge Category Date Time Status Blood Culture Sta t Lab 02/09/21 09:35 Results Labs from last 24 hours 02/13/21 02/13/21 02/12/21 06:47 06:47 18:42 WBC 10.3 H RBC 5.77 H Hgb 16.0 Hct 47.7 MCV 82.7 MCH 27.7 L MCHC 33.5 RDW 13.5 Plt Count 369 D MPV 9.4 Neut % (Auto) 67.5 Lymph % (Auto) 16.6 [place] % (Auto) 10.9 Eos % (Auto) 2.4 Baso % (Auto) 0.5 Neut # (Auto) 6.97 Lymph # (Auto) 1.7 [place] # (Auto) 1.1 H Eos # (Auto) 0.3 Baso # (Auto) 0.1 Nucleated RBC % (a uto) 0 Nucleated RBCs # 0.0 Sodium 138 Potassium 2.9 L Chloride 102 Carbon Dioxide 25 Anion Gap 13.9 BUN 9 Creatinine 0.5 L GFR Calculation 191.5 H Glucose 93 Calculated Osmolal ity 284 L Calcium 8.5 Total Bilirubin 0.5 AST 84 H ALT 88 H Alkaline Phosphata se 60 Total Protein 6.3 L Albumin 3.3 L Globulin 3.0 Vancomycin Trough 11.2 Addt'l Data from Hospital Stay: Laboratory Results WBC 10.3 10^3/uL (4.0 -10.0) H 02/13/21 06:47 RBC 5.77 10^6/uL (4.1 -5.3) H 02/13/21 06:47 Hgb 16.0 g/dL (11.7-1 6.6) 02/13/21 06:47 Hct 47.7 % (42.0-52.0 ) 02/13/21 06:47 MCV 82.7 fl (80-94) 02/13/21 06:47 MCH 27.7 pg (28.0-34. 0) L 02/13/21 06:47 MCHC 33.5 g/dL (30.0-3 6.0) 02/13/21 06:47 RDW 13.5 % (12.1-15.1 ) 02/13/21 06:47 Plt Count 369 10^3/cmm (130 -400) D 02/13/21 06:47 MPV 9.4 fL (7.4-10.4) 02/13/21 06:47 Neut % (Auto) 67.5 % 02/13/21 06:47 Lymph % (Auto) 16.6 % 02/13/21 06:47 [place] % (Auto) 10.9 % 02/13/21 06:47 Eos % (Auto) 2.4 % 02/13/21 06:47 Baso % (Auto) 0.5 % 02/13/21 06:47 Neut # (Auto) 6.97 10^3/uL (1.8 -7.7) 02/13/21 06:47 Lymph # (Auto) 1.7 10^3/uL (0.8- 4.8) 02/13/21 06:47 [place] # (Auto) 1.1 10^3/uL (0.2- 0.9) H 02/13/21 06:47 Eos # (Auto) 0.3 10^3/uL (0.0- 0.8) 02/13/21 06:47 Baso # (Auto) 0.1 10^3/uL (0.0- 0.1) 02/13/21 06:47 Nucleated RBC % (a uto) 0 % 02/13/21 06:47 Nucleated RBCs # 0.0 /100WBC 02/13/21 06:47 PT 14.60 SECONDS (12 .1-14.9) 02/09/21 06:25 INR 1.11 (0.8-1.2) 02/09/21 06:25 APTT 31.9 SECONDS (23. 9-36.7) 02/09/21 06:25 Fibrinogen 520 mg/dL (174-49 8) H 02/09/21 06:25 D-Dimer 1.56 ug/mIFEU (0- 0.59) H 02/09/21 06:25 Sodium 138 mmol/L (136-1 45) 02/13/21 06:47 Potassium 2.9 mmol/L (3.5-5 .1) L 02/13/21 06:47 Chloride 102 mmol/L (98-10 7) 02/13/21 06:47 Carbon Dioxide 25 mmol/L (22-29) 02/13/21 06:47 Anion Gap 13.9 (5-19) 02/13/21 06:47 BUN 9 mg/dL (6-20) 02/13/21 06:47 Creatinine 0.5 mg/dL (0.7-1. 2) L 02/13/21 06:47 GFR Calculation 191.5 mL/min (90- 130) H 02/13/21 06:47 Glucose 93 mg/dL (65-115) 02/13/21 06:47 Calculated Osmolal ity 284 mOsm/kg (285- 295) L 02/13/21 06:47 Lactic Acid 1.6 mmol/L (0.5-2 .2) 02/09/21 06:25 Lactate 0.8 mmol/L (0.5-2 .2) 02/09/21 09:35 Calcium 8.5 mg/dL (8.5-10 .5) 02/13/21 06:47 Magnesium 1.8 mg/dL (1.7-2. 3) 02/11/21 06:52 Total Bilirubin 0.5 mg/dL (0.15-1 .2) 02/13/21 06:47 AST 84 U/L (0-40) H 02/13/21 06:47 ALT 88 U/L (0-41) H 02/13/21 06:47 Alkaline Phosphata se 60 IU/L (40-130) 02/13/21 06:47 Troponin T Gen 5 n g/L 43 ng/L (0-15) H 02/09/21 06:25 C-Reactive Protein 110.8 mg/L (0.0-4 .9) H 02/09/21 06:25 NT-Pro-B Natriuret Pep 1934 pg/mL (0-125 ) H 02/09/21 06:25 Total Protein 6.3 g/dL (6.6-8.7 ) L 02/13/21 06:47 Albumin 3.3 g/dL (3.5-5.2 ) L 02/13/21 06:47 Globulin 3.0 g/dL (1.3-4.6 ) 02/13/21 06:47 Lipase 20 U/L (13-60) 02/09/21 06:25 Procalcitonin 0.60 ng/mL (0-0.5 ) H 02/12/21 07:25 TSH 0.41 uIU/mL (0.27 -4.20) 02/09/21 06:25 Urine Color Straw (Yellow) 02/09/21 11:10 Urine Appearance Clear (CLEAR) 02/09/21 11:10 Urine pH 7 (5-7) 02/09/21 11:10 Ur Specific Gravit y 1.005 (1.005-1.0 30) 02/09/21 11:10 Urine Protein Neg (Negative) 02/09/21 11:10 Urine Glucose (UA) Norm (Normal) 02/09/21 11:10 Urine Ketones Negative (Negati ve) 02/09/21 11:10 Urine Blood Neg (Negative) 02/09/21 11:10 Urine Nitrate Negative (Negati ve) 02/09/21 11:10 Urine Bilirubin Neg (Negative) 02/09/21 11:10 Urine Urobilinogen Norm mg/dL (Negat elie) 02/09/21 11:10 Ur Leukocyte Alicia ase Negative (Negati ve) 02/09/21 11:10 Urine RBC 0-4 /hpf (0-2) H 02/09/21 11:10 Urine WBC 0-4 /hpf (0-5) H 02/09/21 11:10 Ur Squamous Epith Cells 0-4 /hpf (0-5) H 02/09/21 11:10 Amorphous Sediment Not Reportable 02/09/21 11:10 Urine Bacteria Trace /hpf (NONE) 02/09/21 11:10 Vancomycin Trough 11.2 ug/mL (10-15 ) 02/12/21 18:42 Salicylates < 0.3 mg/dL (3-10 ) L 02/09/21 06:25 Urine Opiates Scre en Negative ng/mL (N egative) 02/09/21 11:10 Acetaminophen < 5.0 ug/mL (10-3 0) L 02/09/21 06:25 Ur Barbiturates Sc reen Negative ng/mL (N egative) 02/09/21 11:10 Ur Phencyclidine S crn Negative ng/mL (N egative) 02/09/21 11:10 Ur Amphetamines Sc reen Positive ng/mL (N egative) H 02/09/21 11:10 U Benzodiazepines Scrn Negative ng/mL (N egative) 02/09/21 11:10 Urine Cocaine Scre en Negative ng/mL (N egative) 02/09/21 11:10 U Marijuana (THC) Screen Negative ng/mL (N egative) 02/09/21 11:10 Ethyl Alcohol < 10 mg/dL (0-10) 02/09/21 06:25 Nasal/Oral COVID-1 9 PCR Not detected 02/09/21 08:00 Hepatitis A IgM Ab Non-reactive (No nreactive) 02/10/21 04:54 Hep Bs Antigen Non-reactive (No nreactive) 02/10/21 04:54 Hep B Core IgM Ab Non-reactive (No nreactive) 02/10/21 04:54 Hepatitis C Antibo dy Non-reactive (No nreactive) 02/10/21 04:54 HIV 1&2 Ab & HIV 1 Ag Non-reactive (No n-Reactiv) 02/10/21 04:54 HIV 1&2 Antibody Non-reactive (No n-Reactiv) 02/10/21 04:54 SARS-CoV-2 Ag (Rap id) Negative (Negati ve) 02/09/21 06:20 Impressions Chest X-Ray 02/09/21 06:20 IMPRESSION: Imaging findings concerning for pneumonia. Chest CTA 02/09/21 08:31 IMPRESSION: 1. Study is significantly limited due to breathing motion artifact. 2. No central pulmonary embolism. Beyond the lobar branches the opacification is limited due to phase of injection and motion. 3. Diffuse scattered groundglass opacifications probably due to pneumonitis. 4. No RIGHT heart strain. 5. Mild LEFT heart enlargement. 6. Numerous small mediastinal and hilar lymph nodes are probably reactive. Head CT 02/10/21 02:02 IMPRESSION: 1. No acute intracranial hemorrhage or mass effect. 2. No definite acute infarct by CT, see above. 3. Other findings discussed above. Radiation Dose CTDIVOL = (mGy): DLP = 1597.42 (mGy-cm) Vitals: Last Vital Signs Temp 98.1 F 02/13/21 10:25 Pulse 98 02/13/21 10:25 Resp 18 02/13/21 10:25 BP 120/76 02/13/21 10:25 Pulse Ox 98 02/13/21 10:25 Discharge Plan Discharge Patient Disposition: Left Against Medical Advice Condition: Stable Prescriptions: No Action ibuprofen 200 mg Tablet 400 mg PO Q4H PRN (Reason: Pain) RF: 0 Patient Instructions: Opioid Safety Discharge Attestations Time Spent in Discharge Care*: greater than 30 min Specific Discharge Activities: educating patient, discussing with residential case manager/social workers/dc planners, documenting/other paperwork and evaluating patient/reviewing data Status at Discharge: Cognitive status at discharge: cognitively intact, Behavioral status at discharge: can be uncooperative, Functional status at discharge: independent ambulation Overall status at discharge: other Quality Metrics Clinical Quality Measures During this hospital stay, did patient experience: None Coding Level of Care Code Acute Chg FW DC note Diagnoses Pneumonia J18.9 Hypoxemia R09.02 Headache R51.9 Methamphetamine use F15.10 Hyponatremia E87.1 Elevated d-dimer R79.89 Hypokalemia E87.6 Acute encephalopathy G93.40 Essential hypertension I10
== END 2021-02-13 10:25 | disposition home or self-care (01) | DRG 190 ==
LOC: ER 10:01 → MEDSURG 12:34
PROVIDERS: Hospitalist; Admitting Provider Internal Medicine; Emergency Provider Emergency Medicine; Visit Provider Student in an Organized Health Care Education/Training Program
DX: J44.1 Chronic obstructive pulmonary disease with (acute) exacerbation (principal); J18.9 Pneumonia, unspecified organism; G93.40 Encephalopathy, unspecified; E87.1 Hypo-osmolality and hyponatremia; J44.0 Chronic obstructive pulmonary disease with (acute) lower respiratory infection; F17.210 Nicotine dependence, cigarettes, uncomplicated; I10 Essential (primary) hypertension; Z20.822 Contact with and (suspected) exposure to COVID-19; R09.02 Hypoxemia; R51.9 Headache, unspecified; E87.6 Hypokalemia; D72.829 Elevated white blood cell count, unspecified; F15.10 Other stimulant abuse, uncomplicated; Z82.49 Family history of ischemic heart disease and other diseases of the circulatory system
CPT/HCPCS: 36415; 70450; 71045; 71275; 80053; 80074; 80202; 80306; 80307; 81001; 83605; 83690; 83735; 83880; 84145; 84443; 84484; 85025; 85378; 85384; 85610; 85730; 86140; 87040; 87426; 87635; 87641; 87806; 93005; 94640; 96365; 96366; 96367; 96372; 96375; 99285; J0360; J0456; J0692; J0696; J1100; J1200; J1650; J2060; J2405; J2765; J3370; J3475; J3480; J3535; J7030; J7050; Q0144; Q9967

== ENCOUNTER 2021-08-19 14:41 | Emergency (ER) | payer SELFPAY ==
[2021-08-19 14:46] VITALS: BP 143/86; PULSE 96; RESP 20; TEMP 37; O2SAT 98; BMI 29.0
--- NOTE | 2021-08-19 15:02 | W.ED.ANIMALB ---
HPI - Animal Bite General: Chief Complaint: Animal Bite Stated Complaint: possible insect bite to chest Time Seen by Provider: 08/19/21 14:57 History of Present Illness: Patient complains of an area of redness above his left nipple is been there a few days he thinks may be an insect bite such as a spider. Associated symptoms: Deny chills, fever(s) or headache(s) Review of Systems Const: Denies: fever(s), chills or body aches Eyes: Denies: eye discomfort ENMT: Denies: throat pain Card: Denies: chest pain Resp: Denies: dyspnea GI: Denies: abdominal pain, nausea or vomiting Skin/Breast: Reports: erythema, skin tenderness, skin swelling and other (Possible insect bite above the left nipple area); Denies: rash Neuro: Denies: headache(s) Psych: Denies: depression or suicidal ideation [facility] ED PFSH: Medical History (Updated 08/19/21 @ 15:00 by AIHSA Gamez) ADHD, predominantly inattentive type Anxiety Essential hypertension Headache Hypoxemia Knee pain, bilateral Mood disorder in sleep apnea Nicotine dependence, cigarettes, with unspecified nicotine-induced disorders Persistent mood [affective] disorder, unspecified Post concussion syndrome Renal calculi Right shoulder pain Traumatic brain injury with loss of consciousness Surgical History No pertinent past surgical history Family History Other Hypertension Social History Smoking and tobacco status: current every day smoker cigarettes Packs smoked per day: 0.5 Years cigarettes smoked: 12 Quit status (tobacco): not considering quitting Alcohol intake: never Current occupation: [employer] Current gender identity: Male Physical Exam Const: COMMON NORMALS: no acute distress, patient oriented x3 and alert HENMT: COMMON NORMALS: normocephalic and external ears normal HEAD & SCALP: normocephalic EXTERNAL EAR: Yes external ears normal Eye: COMMON NORMALS: EOMs intact bilaterally Neck/C-Spine: COMMON NORMALS: no JVD Resp: COMMON NORMALS: normal respiratory effort and No use of accessory muscles Cardio: COMMON NORMALS: no JVD GI: INSPECTION: Yes normal to inspection Extremity: COMMON NORMALS: normal to inspection and full ROM Neuro: COMMON NORMALS: patient oriented x3 SENSORIUM/ORIENTATION: Yes alert Psych: COMMON NORMALS: mental status grossly normal Skin: COMMON NORMALS: no rashes or lesions noted GENERAL SKIN EXAM: no rashes or lesions noted OTHER: Area above left nipple has an area of redness erythema that is about half dollar in size and has a central area of excoriation with clear drainage from it it is very tender to the touch around the area I do not notice any lymphadenopathy up in the armpit are any other abnormal swelling around that area. Most likely appears and has characteristics consistent with a brown recluse bite. Course Vital Signs: Vital signs: Vital Signs Temperature 98.6 F 08/19/21 14:46 Pulse Rate 96 08/19/21 14:46 Respiratory Rate 20 H 08/19/21 14:46 Blood Pressure 143/86 08/19/21 14:46 Pulse Oximetry 98 08/19/21 14:46 MDM - Animal Bite Medical Decision Making Possible insect bite with cellulitis to the area above left nipple area Discharge Plan Discharge Patient Disposition: Home Clinical Impression: Insect bite, Cellulitis Condition: Stable Prescriptions: New Bactrim DS 800-160 mg tablet 1 tab PO BID 10 Days Qty: 20 0RF tramadol 50 mg tablet 50 mg PO TID PRN (Reason: pain) Qty: 7 0RF No Action ibuprofen 200 mg Tablet 400 mg PO Q4H PRN (Reason: Pain) 0RF Discharge Orders: Discharge ED (Routine); Ordered 08/19/21 Ordered By: Wiley Hylton Discharge Diet: Usual diet Discharge Activity: Resume usual activity Patient Instructions: Cellulitis (ED) Activity Restrictions/Additional Instructions: Follow-up with medical provider as directed. Take medications as prescribed. Return to the ER or your medical provider if condition worsens. Please read and understand discharge instructions. If any questions ask please. Coding Level of Care Code ED Buggy Runner for Maya Fwd Exam Comprehensive
== END 2021-08-19 15:06 | disposition home or self-care (01) ==
PROVIDERS: Emergency Provider Nurse Practitioner Family
DX: S20.162A Insect bite (nonvenomous) of breast, left breast, initial encounter (principal); L03.818 Cellulitis of other sites; W57.XXXA Bitten or stung by nonvenomous insect and other nonvenomous arthropods, initial encounter; I10 Essential (primary) hypertension; F17.210 Nicotine dependence, cigarettes, uncomplicated
CPT/HCPCS: 99281

== ENCOUNTER 2021-09-18 00:56 | Emergency (ER) | payer MEDICARE, MEDICAID, SELFPAY ==
[2021-09-18 01:13] VITALS: BP 190/120; PULSE 101; RESP 22; TEMP 36.7; O2SAT 98; BMI 28.1
--- NOTE | 2021-09-18 01:28 | USR_ITS ---
PROCEDURE INFORMATION: Exam: US Scrotum and US Duplex Artery and Vein, Scrotum, Complete Exam date and time: 09/18/2021 2:28 AM Age: 36 years old Clinical indication: Scrotum pain; Additional info: R testicle pain TECHNIQUE: Imaging protocol: Real-time ultrasound of the scrotum. Real-time duplex ultrasound scan of the arterial and venous flow of the scrotum with B-mode, color Doppler flow and spectral waveform analysis. Complete exam. Duplex images required to evaluate vascular conditions. COMPARISON: No relevant prior studies available. FINDINGS: Right: The right testicle measures 45 x 30 x 36 mm, estimated volume 25.2 cc. No visible intratesticular mass. Duplex Doppler evaluation, with color flow and spectral waveform analysis, demonstrates intratesticular arterial and venous blood flow. The right epididymis is normal in size and appearance. There is no significant right scrotal fluid. Left: The left testicle measures 43 x 29 x 35 mm, estimated volume 22.2 cc. No visible intratesticular mass. Duplex Doppler evaluation, with color flow and spectral waveform analysis, demonstrates intratesticular arterial and venous blood flow. The left epididymis is normal in size and appearance. There is no significant left scrotal fluid. US/US scrotum [id number] IMPRESSION: 1. No evidence for torsion by Doppler ultrasound. 2. No findings to suggest epididymitis. 3. Other details discussed above.
--- NOTE | 2021-09-18 01:28 | CTR_ITS ---
PROCEDURE INFORMATION: Exam: CT Abdomen And Pelvis With Contrast Exam date and time: 09/18/2021 3:01 AM Age: 36 years old Clinical indication: Abdominal pain; Generalized; Additional info: Abd pain TECHNIQUE: Imaging protocol: Computed tomography of the abdomen and pelvis with contrast. Radiation optimization: All CT scans at this facility use at least one of these dose optimization techniques: automated exposure control; mA and/or kV adjustment per patient size (includes targeted exams where dose is matched to clinical indication); or iterative reconstruction. Contrast material: OMNI 300; Contrast volume: 95 ml; Contrast route: INTRAVENOUS (IV); COMPARISON: CT Abdomen/Pelvis Renal [id number] 04/18/2019 12:08 PM RADIATION DOSE METRICS: Total DLP (mGy-cm): 1477.08 FINDINGS: Lungs: The lung bases are clear. Liver: Three small subtle subcentimeter low attenuation areas in the liver. These are nonspecific, but are statistically most likely small cysts or cavernous hemangiomas. Gallbladder and bile ducts: No definite gallbladder abnormality by CT. No biliary tree dilation. Pancreas: Unremarkable. Spleen: Unremarkable. Adrenal glands: Unremarkable. Kidneys and ureters: 3-4 mm left upper pole intrarenal calculus. No hydronephrosis of either kidney. No visible ureteral calculus. No perinephric fluid. The kidneys enhance homogeneously. Stomach and bowel: The stomach appears somewhat distended at the time of scanning. Please correlate clinically. No significant bowel distention. There are no CT findings to strongly suggest diverticulitis. Appendix: The appendix is visualized and appears normal. Intraperitoneal space: No free intraperitoneal air, or ascites. Arteries: Moderate calcifications in the lower aorta and proximal iliac arteries, prominent for patient's age of 36 years. No evidence for abdominal aortic aneurysm. Lymph nodes: No retroperitoneal adenopathy. Urinary bladder: The urinary bladder appears somewhat distended at the time of scanning. The urinary bladder measures 13 x 9.5 x 10 cm, estimated volume approximately 645 cc. Please correlate clinically. No visible calculus in the urinary bladder. No significant bladder wall thickening. Reproductive: Mild prostate calcifications, unchanged. Bones/joints: No significant acute finding. Soft tissues: Very small umbilical hernia, containing only fat. CT/CT abdomen pelvis w con* [id number] IMPRESSION: 1. Normal appendix. 2. Somewhat distended urinary bladder, details above. 3. Small left upper pole intrarenal calculus. No hydronephrosis of either kidney. No visible ureteral calculus. 4. Somewhat distended stomach. 5. No free air or bowel distention. 6. Other findings discussed above.
--- NOTE | 2021-09-18 01:30 | ED_ITS ---
HPI - Abdominal Pain General: Chief Complaint: Abdominal Pain Stated Complaint: abd pain Time Seen by Provider: 09/18/21 00:59 Source: patient Mode of arrival: ambulatory Limitations: no limitations History of Present Illness: 36-year-old male who states over the last day he has been having sharp pains in his right lower quadrant along with some right testicle pain. States main pain is in his belly though. He states the pain is sharp in nature rates an 8 out of 10 denies any worsening proving factors had no vomiting or diarrhea denies any fevers. Denies any dysuria. Associated Symptoms: Denies chills, diarrhea, dysuria, fever(s), nausea and vomiting Review of Systems Const: Denies: fever(s), chills, body aches or change in appetite Eyes: Denies: blurry vision or eye discomfort ENMT: Denies: throat pain or dental pain Card: Denies: chest pain Resp: Denies: dyspnea GI: Reports: abdominal pain; Denies: nausea, vomiting or diarrhea : Reports: testicular pain; Denies: dysuria Musc: Denies: neck pain or back pain Skin/Breast: Denies: rash Neuro: Denies: headache(s) Psych: Denies: depression Adán/Lymph: Denies: easy bruising All/Imm: Denies: urticaria PFSH ED PFSH: Medical History ADHD, predominantly inattentive type Anxiety Essential hypertension Headache Hypoxemia Knee pain, bilateral Mood disorder in sleep apnea Nicotine dependence, cigarettes, with unspecified nicotine-induced disorders Persistent mood [affective] disorder, unspecified Post concussion syndrome Renal calculi Right shoulder pain Traumatic brain injury with loss of consciousness Surgical History No pertinent past surgical history Family History Other Hypertension Social History Smoking and tobacco status: current every day smoker cigarettes Packs smoked p er day: 0.5 Years cigarettes smoked: 12 Quit status (tobacco): not considering quitting Alcohol intake: never 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 Current gender identity: Male Physical Exam Const: COMMON NORMALS: no acute distress, patient oriented x3 and healthy tasia earing HENMT: COMMON NORMALS: normocephalic and atraumatic HEAD & SCALP: normocephalic and atraumatic Eye: COMMON NORMALS: Equal, round and reactive pupils present and EOMs intact bilaterally PUPIL: Yes Equal, round and reactive pupils present Neck/C-Spine: COMMON NORMALS: full ROM and supple Chest: COMMONS NORMALS: normal inspection of the chest and normal palpation of entire chest wall Resp: COMMON NORMALS: normal respiratory effort, No retractions, No use of accessory muscles and clear to auscultation bilaterally AUSCULTATION: clear to auscultation bilaterally Cardio: COMMON NORMALS: regular rate, regular rhythm and No murmurs present (Cardio) RATE: regular rate RHYTHM: regular rhythm GI: COMMON NORMALS: Normal to inspection, nondistended, normoactive bowel sounds present, Soft to palpation and no masses PALPATION: Yes Soft to palpation and Yes Tenderness to palpation present (GI) Details: RLQ Extremity: COMMON NORMALS: normal to inspection and full ROM Neuro: COMMON NORMALS: patient oriented x3, moves all extremities and no focal motor deficits Psych: COMMON NORMALS: mental status grossly normal, Normal thought process present and cooperative THOUGHT PROCESS: Normal thought process present Skin: COMMON NORMALS: no rashes or lesions noted and no wounds GENERAL SKIN EXAM: no rashes or lesions noted Course Vital Signs: Vital signs: Vital Signs Temperature 98.0 F 09/18/21 01:13 Pulse Rate 101 H 09/18/21 01:13 Respiratory Rate 22 H 09/18/21 02:02 Blood Pressure 190/120 09/18/21 01:13 Pulse Oximetry 98 09/18/21 01:13 MDM - Abdominal Pain Medical Decision Making Patient presented with abdominal pain and testicle pain his CT of his abdomen blood work and testicle general normal his pain here is improved will prescribe him Reglan for home for his nausea. He is to follow-up his PCP and return if worsening he understands and agrees to plan. Lab Data : 09/18/21 02:04 09/18/21 02:04 Labs/Radiology: Radiology Impressions Abdomen/Pelvis CT 09/18/21 01:28 IMPRESSION: 1. Normal appendix. 2. Somewhat distended urinary bladder, details above. 3. Small left upper pole intrarenal calculus. No hydronephrosis of either kidney. No visible ureteral calculus. 4. Somewhat distended stomach. 5. No free air or bowel distention. 6. Other findings discussed above. Scrotum Ultrasound 09/18/21 01:28 IMPRESSION: 1. No evidence for torsion by Doppler ultrasound. 2. No findings to suggest epididymitis. 3. Other details discussed above. Laboratory Results WBC 13.3 10^3/uL (4.0-10.0) H 09/18/21 02:04 RBC 5.26 10^6/uL (4.1-5.3) 09/18/21 02:04 Hgb 14.7 g/dL (11.7-16.6) 09/18/21 02:04 Hct 44.6 % (42.0-52.0) 09/18/21 02:04 MCV 84.8 fl (80-94) 09/18/21 02:04 MCH 27.9 pg (28.0-34.0) L 09/18/21 02:04 MCHC 33.0 g/dL (30.0-36.0) 09/18/21 02:04 RDW 13.2 % (12.1-15.1) 09/18/21 02:04 Plt Count 375 10^3/cmm (130-400) 09/18/21 02:04 MPV 9.4 fL (7.4-10.4) 09/18/21 02:04 Neut % (Auto) 68.5 % 09/18/21 02:04 Lymph % (Auto) 19.0 % 09/18/21 02:04 [place] % (Auto) 10.1 % 09/18/21 02:04 Eos % (Auto) 1.4 % 09/18/21 02:04 Baso % (Auto) 0.5 % 09/18/21 02:04 Neut # (Auto) 9.12 10^3/uL (1.8-7.7) H 09/18/21 02:04 Lymph # (Auto) 2.5 10^3/uL (0.8-4.8) 09/18/21 02:04 [place] # (Auto) 1.3 10^3/uL (0.2-0.9) H 09/18/21 02:04 Eos # (Auto) 0.2 10^3/uL (0.0-0.8) 09/18/21 02:04 Baso # (Auto) 0.1 10^3/uL (0.0-0.1) 09/18/21 02:04 Nucleated RBC % (auto) 0 % 09/18/21 02:04 Nucleated RBCs # 0.0 /100WBC 09/18/21 02:04 Sodium 135 mmol/L (136-145) L 09/18/21 02:04 Potassium 3.7 mmol/L (3.5-5.1) 09/18/21 02:04 Chloride 100 mmol/L (98-107) 09/18/21 02:04 Carbon Dioxide 24 mmol/L (22-29) 09/18/21 02:04 Anion Gap 14.7 (5-19) 09/18/21 02:04 BUN 11 mg/dL (6-20) 09/18/21 02:04 Creatinine 0.9 mg/dL (0.7-1.2) 09/18/21 02:04 GFR Calculation 96.6 mL/min (90-130) 09/18/21 02:04 Glucose 107 mg/dL (65-115) 09/18/21 02:04 Calculated Osmolality 280 mOsm/kg (285-295) L 09/18/21 02:04 Calcium 9.3 mg/dL (8.5-10.5) 09/18/21 02:04 Total Bilirubin 0.6 mg/dL (0.15-1.2) 09/18/21 02:04 AST 18 U/L (0-40) 09/18/21 02:04 ALT 22 U/L (0-41) 09/18/21 02:04 Alkaline Phosphatase 104 IU/L (40-130) 09/18/21 02:04 Total Protein 7.4 g/dL (6.6-8.7) 09/18/21 02:04 Albumin 4.1 g/dL (3.5-5.2) 09/18/21 02:04 Globulin 3.3 g/dL (1.3-4.6) 09/18/21 02:04 Lipase 17 U/L (13-60) 09/18/21 02:04 Urine Color Yellow (Yellow) 09/18/21 02:10 Urine Appearance Clear (CLEAR) 09/18/21 02:10 Urine pH 8 (5-7) H 09/18/21 02:10 Ur Specific [place] 1.015 (1.005-1.030) 09/18/21 02:10 Urine Protein Neg (Negative) 09/18/21 02:10 Urine Glucose (UA) Norm (Normal) 09/18/21 02:10 Urine Ketones Negative (Negative) 09/18/21 02:10 Urine Blood Neg (Negative) 09/18/21 02:10 Urine Nitrate Negative (Negative) 09/18/21 02:10 Urine Bilirubin Neg (Negative) 09/18/21 02:10 Prot Sulfosalicylic Acd Negative (Negative) 09/18/21 02:10 Urine Urobilinogen Norm mg/dL (Negative) 09/18/21 02:10 Ur Leukocyte Esterase Negative (Negative) 09/18/21 02:10 Urine Opiates Screen Negative ng/mL (Negative) 09/18/21 02:10 Ur Barbiturates Screen Negative ng/mL (Negative) 09/18/21 02:10 Ur Phencyclidine Scrn Negative ng/mL (Negative) 09/18/21 02:10 Ur Amphetamines Screen Positive ng/mL (Negative) H 09/18/21 02:10 U Benzodiazepines Scrn Negative ng/mL (Negative) 09/18/21 02:10 Urine Cocaine Screen Negative ng/mL (Negative) 09/18/21 02:10 U Marijuana (THC) Screen Negative ng/mL (Negative) 09/18/21 02:10 Discharge Plan Discharge Patient Disposition: Home Clinical Impression: Abdominal pain Condition: Stable Prescriptions: New Reglan 10 mg tablet 10 mg PO Q6H PRN (Reason: nausea and vomiting) Qty: 20 0RF No Action ibuprofen 200 mg Tablet 400 mg PO Q4H PRN (Reason: Pain) 0RF tramadol 50 mg tablet 50 mg PO TID PRN (Reason: pain) Qty: 7 0RF Discharge Orders: Discharge ED (Routine); Ordered 09/18/21 Ordered By: Madisyn Reyes Discharge Diet: Advance as tolerated Discharge Activity: Resume usual activity Patient Instructions: Abdominal Pain (ED) Coding Level of Care Code ED Boarding Mother for Chg Fwd Exam Comprehensive
[2021-09-18] MEDS: sodium chloride 0.9% 1,000 ML 999 ML IV (02:01)
[2021-09-18 02:02] VITALS: RESP 22
[2021-09-18] MEDS: ondansetron 2 mg/ML SDV 2 mL 4 MG IVP (02:02)
[2021-09-18] MEDS: HYDROmorphone 1 mg/mL INJ 1 mL IVP (02:02)
[2021-09-18 02:19] LABS: Basophils # 0.1 10^3/uL (0.0-0.1); Basophils % 0.5 %; Eosinophils # 0.2 10^3/uL (0.0-0.8); Eosinophils % 1.4 %; Hematocrit 44.6 % (42.0-52.0); Hemoglobin 14.7 g/dL (11.7-16.6); Lymphocytes # 2.5 10^3/uL (0.8-4.8); Mean Corpuscular Hemoglobin 27.9 pg (28.0-34.0); Mean Corpuscular Volume 84.8 fl (80-94); Mean Platelet Volume 9.4 fL (7.4-10.4); Monocytes # 1.3 10^3/uL (0.2-0.9); Monocytes % 10.1 %; Neutrophils # 9.12 10^3/uL (1.8-7.7); Neutrophils % 68.5 %; Nucleated Red Blood Cells % 0 %; Platelet Count 375 10^3/cmm (130-400); Red Blood Count 5.26 10^6/uL (4.1-5.3); Red Cell Distribution Width 13.2 % (12.1-15.1); White Blood Count 13.3 10^3/uL (4.0-10.0)
[2021-09-18 02:21] LABS: Add Urine Microscopic? NO; Charge for UA Resulting for Rev
[2021-09-18 02:23] LABS: Urine Appearance Clear (CLEAR); Urine Color Yellow (Yellow)
[2021-09-18] MEDS: LORazepam 2 mg/mL INJ 1 mL 1 MG IVP (02:23)
[2021-09-18 02:24] LABS: Bilirubin Urine Neg (Negative); Blood Urine Neg (Negative); Glucose Urine UA Norm (Normal); Ketones Urine Negative (Negative); Leukocyte Esterase Urine Negative (Negative); Nitrate Urine Negative (Negative); Protein Urine Neg (Negative); Specific Gravity, Urine 1.015 (1.005-1.030); Sulfosalicylic Acid Urine Negative (Negative); Urobilinogen Urine Norm (Negative); pH Urine 8 (5-7)
[2021-09-18 02:40] LABS: Alanine Aminotransferase 22 U/L (0-41); Albumin Level 4.1 g/dL (3.5-5.2); Alkaline Phosphatase 104 IU/L (40-130); Anion Gap 14.7 (5-19); Aspartate Amino Transferase 18 U/L (0-40); Blood Urea Nitrogen 11 mg/dL (6-20); Calcium 9.3 mg/dL (8.5-10.5); Carbon Dioxide 24 mmol/L (22-29); Chloride 100 mmol/L (98-107); Globulin 3.3 g/dL (1.3-4.6); Glomerular Filtration Rate 96.6 mL/min (90-130); Glucose 107 mg/dL (65-115); Lipase 17 U/L (13-60); Osmolality Calculated 280 mOsm/kg (285-295); Potassium 3.7 mmol/L (3.5-5.1); Sodium 135 mmol/L (136-145); Total Bilirubin 0.6 mg/dL (0.15-1.2); Total Protein 7.4 g/dL (6.6-8.7)
[2021-09-18 02:48] LABS: Amphetamines Screen Urine Positive (Negative); Barbiturates Screen Urine Negative (Negative); Benzodiazepines Screen Urine Negative (Negative); Cocaine Screen Urine Negative (Negative); Opiate Screen Urine Negative (Negative); PCP Screen Urine Negative (Negative); THC Screen Urine Negative (Negative)
[2021-09-18] MEDS: iohexol 300 mg/mL 100 mL Btl IV (03:01)
[2021-09-18 04:22] VITALS: BP 180/110; PULSE 80; RESP 18; TEMP 36.7; O2SAT 97
== END 2021-09-18 04:29 | disposition home or self-care (01) ==
PROVIDERS: Emergency Provider Emergency Medicine
DX: R10.31 Right lower quadrant pain (principal); N50.819 Testicular pain, unspecified; I10 Essential (primary) hypertension; F17.210 Nicotine dependence, cigarettes, uncomplicated
CPT/HCPCS: 74177; 76870; 80053; 80306; 81003; 83690; 85025; 96361; 96374; 96375; 99284; J1170; J2060; J2405; J7030; Q9967

== ENCOUNTER 2023-02-19 13:21 | Emergency (ER) | payer MEDICARE, MEDICAID, SELFPAY ==
[2023-02-19 13:41] VITALS: BP 133/86; PULSE 87; RESP 14; TEMP 36.8; O2SAT 95; BMI 40.5
--- NOTE | 2023-02-19 13:49 | ECG_ITS ---
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 Measurements Intervals [place] Rate: 93 P: 16 WI: 172 QRS: 138 QRSD: 110 T: 41 QT: 357 QTc: 446 Interpretive Statements SINUS RHYTHM POSSIBLE RIGHT VENTRICULAR HYPERTROPHY [SOME/ALL OF: PROMINENT R IN V1, LATE TRANSITION, RAD, SAMARIA, SSS] Compared to ECG 02/09/2021 08:28:04 Incomplete right bundle-branch block no longer present Electronically Signed On 02-19-2023 17:57:39 CDT by Cali Rasheed M.D. [id number]
--- NOTE | 2023-02-19 14:30 | ED_ITS ---
HPI - Abdominal Pain General: Chief Complaint: Abdominal Pain Stated Complaint: abd pain Time Seen by Provider: 02/19/23 14:09 Source: patient Mode of arrival: ambulatory History of Present Illness: 38-year-old male who presents to the emergency room with complaints of abdominal pain. He states he has had abdominal discomfort mostly in the epigastric region off and on for over a week he is taken some [id number] medications with but he does not really know the name of what it was he disposes first stomach upset. Denied any shortness of breath or chest pain. He does state the symptoms are worse after breathing. He had intermittent constipation and diarrhea denies hematochezia melena hematemesis cough cramps no fever sweats chills no dysuria urgency or frequency no hematuria. MD elicited complaint: abdominal pain [facility] ED PFSH: Medical History ADHD, predominantly inattentive type Anxiety Essential hypertension Headache Hypoxemia Knee pain, bilateral Mood disorder in sleep apnea Nicotine dependence, cigarettes, with unspecified nicotine-induced disorders Persistent mood [affective] disorder, unspecified Post concussion syndrome Renal calculi Right shoulder pain Traumatic brain injury with loss of consciousness Surgical History No pertinent past surgical history Family History Other Hypertension Social History Smoking and tobacco status: current every day smoker cigarettes Packs smoked per day: 0.5 Years cigarettes smoked: 12 Quit status (tobacco): not considering quitting Alcohol intake: never Substance/Drug Use: current Current occupation: [employer] Current gender identity: Male Course Vital Signs: Vital signs: Vital Signs Temperature 98.3 F 02/19/23 13:41 Pulse Rate 82 02/19/23 15:39 Respiratory Rate 16 02/19/23 15:39 Blood Pressure 139/100 02/19/23 15:39 Pulse Oximetry 92 02/19/23 15:39 Oxygen Delivery Me thod Room Air 02/19/23 15:39 MDM - Abdominal Pain Medical Decision Making Labs reviewed. No evidence of acute bleed. Will start on proton pump inhibitor 40 twice daily for 10 days then daily after this. Medical Records I reviewed the patient's medical records. Lab Data I reviewed the patient's lab results. 02/19/23 15:20 02/19/23 15:20 Labs/Radiology: Laboratory Results WBC 10.83 10^3/uL (3.29-11.43) 02/19/23 15:20 RBC 5.54 10^6/uL (3.85-5.65) 02/19/23 15:20 Hgb 14.80 g/dL (11.27-16.99) 02/19/23 15:20 Hct 44.4 % (37-53) 02/19/23 15:20 MCV 80.1 fl (82-101) L 02/19/23 15:20 MCH 26.7 pg (27-33) L 02/19/23 15:20 MCHC 33.3 g/dL (30-55) 02/19/23 15:20 RDW 14.1 % (12.1-15.1) 02/19/23 15:20 Plt Count 363 10^3/cmm (157-399) 02/19/23 15:20 MPV 8.5 fL (7.4-10.4) 02/19/23 15:20 Neut % (Auto) 61.6 % 02/19/23 15:20 Lymph % (Auto) 24.3 % 02/19/23 15:20 [place] % (Auto) 9.4 % 02/19/23 15:20 Eos % (Auto) 3.0 % 02/19/23 15:20 Baso % (Auto) 0.6 % 02/19/23 15:20 Neut # (Auto) 6.68 10^3/uL (1.8-7.7) 02/19/23 15:20 Lymph # (Auto) 2.6 10^3/uL (0.8-4.8) 02/19/23 15:20 [place] # (Auto) 1.0 10^3/uL (0.2-0.9) H 02/19/23 15:20 Eos # (Auto) 0.3 10^3/uL (0.0-0.8) 02/19/23 15:20 Baso # (Auto) 0.1 10^3/uL (0.0-0.1) 02/19/23 15:20 Nucleated RBC % (auto) 0 % 02/19/23 15:20 Nucleated RBCs # 0.0 /100WBC 02/19/23 15:20 Sodium 136 mmol/L (136-145) 02/19/23 15:20 Potassium 3.1 mmol/L (3.5-5.1) L 02/19/23 15:20 Chloride 98 mmol/L (98-107) 02/19/23 15:20 Carbon Dioxide 28 mmol/L (22-29) 02/19/23 15:20 Anion Gap 13.1 (5-19) 02/19/23 15:20 BUN 12 mg/dL (6-20) 02/19/23 15:20 Creatinine 0.8 mg/dL (0.7-1.2) 02/19/23 15:20 GFR Calculation 109.4 mL/min (90-130) 02/19/23 15:20 Glucose 104 mg/dL (65-115) 02/19/23 15:20 Calculated Osmolality 282 mOsm/kg (285-295) L 02/19/23 15:20 Calcium 9.3 mg/dL (8.5-10.5) 02/19/23 15:20 Total Bilirubin 0.3 mg/dL (0.15-1.2) 02/19/23 15:20 AST 24 U/L (0-40) 02/19/23 15:20 ALT 37 U/L (0-41) 02/19/23 15:20 Alkaline Phosphatase 104 U/L (40-130) 02/19/23 15:20 Total Protein 7.2 g/dL (6.6-8.7) 02/19/23 15:20 Albumin 4.4 g/dL (3.5-5.2) 02/19/23 15:20 Globulin 2.8 g/dL (1.3-4.6) 02/19/23 15:20 Lipase 17 U/L (13-60) 02/19/23 15:20 Urine Color Yellow (Yellow) 02/19/23 16:46 Urine Appearance Clear (CLEAR) 02/19/23 16:46 Urine pH 5 (5-7) 02/19/23 16:46 Ur Specific [place] 1.020 (1.005-1.030) 02/19/23 16:46 Urine Protein Neg (Negative) 02/19/23 16:46 Urine Glucose (UA) Norm (Normal) 02/19/23 16:46 Urine Ketones Negative (Negative) 02/19/23 16:46 Urine Blood Neg (Negative) 02/19/23 16:46 Urine Nitrate Negative (Negative) 02/19/23 16:46 Urine Bilirubin Neg (Negative) 02/19/23 16:46 Urine Urobilinogen 1 mg/dL (Negative) H 02/19/23 16:46 Ur Leukocyte Esterase Negative (Negative) 02/19/23 16:46 Discharge Plan Discharge Patient Disposition: Home Clinical Impression: Gastroesophageal reflux disease Condition: Stable Prescriptions: New pantoprazole 40 mg tablet,delayed release (DR/EC) 40 mg PO BID 10 Days Qty: 40 0RF Rx Instructions: one pill twice a day for 10 days then once daily. Discontinued ibuprofen 200 mg Tablet 400 mg PO Q4H PRN (Reason: Pain) No Action tramadol 50 mg tablet 50 mg PO TID PRN (Reason: pain) Qty: 7 0RF Reglan 10 mg tablet 10 mg PO Q6H PRN (Reason: nausea and vomiting) Qty: 20 0RF Discharge Orders: Discharge ED (Routine); Ordered 02/19/23 Ordered By: Vidal Bennett Referrals: Jason Michel, PACK TRAIN DRIVER [Primary Care Provider] - Discharge Diet: As Directed Patient Instructions: Diet for Stomach Ulcers and Gastritis (ED), Gastroeso phageal Reflux in Infants (ED), Opioid Safety, Pain Management Coding Level of Care Code ED Biomedical Electronics Technician for Maya Aguirre
[2023-02-19 15:35] LABS: Basophils # 0.1 10^3/uL (0.0-0.1); Basophils % 0.6 %; Eosinophils # 0.3 10^3/uL (0.0-0.8); Hematocrit 44.4 % (37-53); Lymphocytes # 2.6 10^3/uL (0.8-4.8); Lymphocytes % 24.3 %; Mean Corpuscular HGB Conc 33.3 g/dL (30-55); Mean Corpuscular Hemoglobin 26.7 pg (27-33); Mean Corpuscular Volume 80.1 fl (82-101); Mean Platelet Volume 8.5 fL (7.4-10.4); Monocytes % 9.4 %; Neutrophils # 6.68 10^3/uL (1.8-7.7); Neutrophils % 61.6 %; Nucleated Red Blood Cells % 0 %; Platelet Count 363 10^3/cmm (157-399); Red Blood Count 5.54 10^6/uL (3.85-5.65); Red Cell Distribution Width 14.1 % (12.1-15.1); White Blood Count 10.83 10^3/uL (3.29-11.43)
[2023-02-19 15:39] VITALS: BP 139/100; PULSE 82; RESP 16; O2SAT 92
[2023-02-19 15:49] LABS: Alanine Aminotransferase 37 U/L (0-41); Albumin Level 4.4 g/dL (3.5-5.2); Alkaline Phosphatase 104 U/L (40-130); Anion Gap 13.1 (5-19); Aspartate Amino Transferase 24 U/L (0-40); Blood Urea Nitrogen 12 mg/dL (6-20); Calcium 9.3 mg/dL (8.5-10.5); Carbon Dioxide 28 mmol/L (22-29); Chloride 98 mmol/L (98-107); Globulin 2.8 g/dL (1.3-4.6); Glomerular Filtration Rate 109.4 mL/min (90-130); Glucose 104 mg/dL (65-115); Lipase 17 U/L (13-60); Osmolality Calculated 282 mOsm/kg (285-295); Potassium 3.1 mmol/L (3.5-5.1); Sodium 136 mmol/L (136-145); Total Bilirubin 0.3 mg/dL (0.15-1.2); Total Protein 7.2 g/dL (6.6-8.7)
[2023-02-19 17:01] LABS: Add Urine Microscopic? NO; Charge for UA Resulting for Rev
[2023-02-19 17:09] LABS: Bilirubin Urine Neg (Negative); Blood Urine Neg (Negative); Glucose Urine UA Norm (Normal); Ketones Urine Negative (Negative); Leukocyte Esterase Urine Negative (Negative); Nitrate Urine Negative (Negative); Protein Urine Neg (Negative); Urine Appearance Clear (CLEAR); Urine Color Yellow (Yellow); Urobilinogen Urine 1 mg/dL (Negative); pH Urine 5 (5-7)
== END 2023-02-19 17:52 | disposition home or self-care (01) ==
PROVIDERS: Emergency Provider Family Medicine; PCP Registered Nurse
DX: K21.9 Gastro-esophageal reflux disease without esophagitis (principal); I10 Essential (primary) hypertension; F17.210 Nicotine dependence, cigarettes, uncomplicated
CPT/HCPCS: 36415; 80053; 81003; 83690; 85025; 93005; 99284